=== PATIENT | female | born 1935 | race Caucasian/White ===

== ENCOUNTER 2017-12-13 11:42 | Outpatient (CLI) | payer MEDICARE, BC | END 2017-12-13 11:43 | disposition home or self-care (01) | LOC: BICMAMMO 11:42 | PROVIDERS: ATTEND Family Medicine | DX: Z12.31 Encounter for screening mammogram for malignant neoplasm of breast (principal); Z85.3 Personal history of malignant neoplasm of breast | CPT/HCPCS: 77063; 77067 ==

== ENCOUNTER 2018-12-16 09:53 | Outpatient (CLI) | payer MEDICARE, BC ==
--- NOTE | 2018-12-16 10:41 | MMO ---
Bilateral MAMMO Bilat Screen [facility]. CLINICAL HISTORY: Patient is 83 years old and is seen for screening. The patient has a history of invasive ductal left breast carcinoma in April,. The patient has a history of left Excisional Biopsy in 1994 - benign, left Excisional Biopsy in 12/2004 - cyst and left Lumpectomy in 04/04. VIEWS: The views performed were: bilateral craniocaudal with tomosynthesis and bilateral mediolateral oblique with tomosynthesis. FILMS COMPARED: The present examination has been compared to prior imaging studies performed at [facility] on 10/01/2014, 11/26/2015, 11/30/2016 and 12/13/2017. MAMMOGRAM FINDINGS: There are scattered fibroglandular densities. There are stable benign appearing calcifications seen in both breasts. There are no suspicious masses, suspicious calcifications, or new areas of architectural distortion. IMPRESSION: THERE IS NO MAMMOGRAPHIC EVIDENCE OF MALIGNANCY. A ROUTINE FOLLOW-UP MAMMOGRAM IN 1 YEAR IS RECOMMENDED. THE RESULTS OF THIS EXAM WERE SENT TO THE PATIENT. ACR BI-RADS Category 2 - Benign finding MAMMOGRAPHY NOTE: 1. A negative mammogram report should not delay a biopsy if a dominant of clinically suspicious mass is present. 2. Approximately 10% to 15% of breast cancers are not detected by mammography. 3. Adenosis and dense breasts may obscure an underlying neoplasm.
--- NOTE | 2018-12-16 12:09 | BD ---
DEXA SCAN: DATE: 12/16/2018. PROVIDED CLINICAL HISTORY: Postmenopausal screening. FINDINGS: Lumbar Spine: BMD (g/cm2) L1 0.891 T-Score: -0.9 L2 0.861 T-Score: -1.5 L3 0.924 T-Score: -1.5 L4 0.914 T-Score: -1.3 L1-L4 0.898 T-Score: -1.4 Femoral Neck: 0.643 T-Score: -1.9 Total Femur: 0.818 T-Score: -1 Ten-year fracture risk: Major osteoporotic fracture 14%. Hip fracture 4.3%. Impression: Calculated bone mineral density meets WHO criteria for osteopenia and places the patient at increased risk for fracture. POS: Dimitri
== END 2018-12-16 09:54 | disposition home or self-care (01) ==
LOC: BICMAMMO 09:53
PROVIDERS: ATTEND Family Medicine
DX: Z12.31 Encounter for screening mammogram for malignant neoplasm of breast (principal); M85.89 Other specified disorders of bone density and structure, multiple sites; Z85.3 Personal history of malignant neoplasm of breast; Z91.89 Other specified personal risk factors, not elsewhere classified; Z98.890 Other specified postprocedural states
CPT/HCPCS: 77063; 77067; 77080

== ENCOUNTER 2020-04-26 12:01 | Inpatient (IN) | payer MEDICARE, BC, OTHER ==
[2020-04-26 12:54] LABS: #Eosinphils 0.1 thou/uL (0.0-0.7); #Lymphocytes 1.3 thou/uL (1.20-3.40); #Neutrophils 7.6 thou/uL (1.40-6.50); %Basophils 0.1 % (0.0-1.0); %Eosinophils 0.6 % (0.0-10.0); %Lymphocytes 12.7 % (21.0-51.0); %Monocytes 9.8 % (0.0-10.0); %Neutrophils 76.8 % (42.0-75.0); Hemoglobin 12.3 g/dL (12.0-16.0); Mean Corpuscular HGB CONC 32.7 g/dL (32.0-36.0); Mean Corpuscular Hemoglobin 32.7 pg (27.0-31.0); Mean Corpuscular Volume 99.8 fL (78.0-98.0); Mean Platelet Volume 10.7 fL (7.4-10.4); Platelet Count 196 thou/uL (130-400); RBC Distribution Width 11.8 % (11.5-14.5); Red Blood Cell (RBC) Count 3.78 mill/uL (4.20-5.40); White Blood Cell (WBC) Count 9.9 thou/uL (4.8-10.8)
[2020-04-26] MEDS ORDERED: Lidocaine 1% w/Epinephrine 1:100K 20 ML VIAL ONE (12:55)
[2020-04-26] MEDS ORDERED: Ondansetron PF 4 MG/2 ML Vial ONE ×2 (12:59→14:04)
[2020-04-26] MEDS ORDERED: Morphine 2 MG/ML VIAL ONE (12:59)
[2020-04-26] MEDS ORDERED: Lidocaine 1% (PF) 30 ML VIAL ONE (13:12)
[2020-04-26 13:27] LABS: ALT (SGPT) 44 U/L (8-55); AST (SGOT) 56 U/L (5-34); Alkaline Phosphatase 71 U/L (40-110); Anion Gap 14 mmol/L (10-20); BUN (Urea Nitrogen) 28 mg/dL (9.8-20.1); Bilirubin, Total 0.7 mg/dL (0.2-1.2); Calc. Creatinine Clearance 0 mL/min (70-130); Calcium 9.5 mg/dL (7.8-10.44); Carbon Dioxide 25 mmol/L (23-31); Chloride 101 mmol/L (98-107); Estimated GFR-MDRD 79; Globulin 3.7 g/dL (2.4-3.5); Glucose 118 mg/dL (83-110); Potassium 4.8 mmol/L (3.5-5.1); Protein, Total 7.7 g/dL (6.0-8.3); Sodium 135 mmol/L (136-145)
[2020-04-26] MEDS ORDERED: Ketorolac Tromethamine 30 MG/ML VIAL ONE (13:27)
[2020-04-26 13:30] LABS: INR-International Normal Ratio 1.2; PTT 31.1 sec (22.9-36.1); Prothrombin Time 15.3 sec (12.0-14.7)
[2020-04-26] MEDS ORDERED: Dextrose 5% in Water 1,000 ML IV PRN (13:34)
[2020-04-26] MEDS ORDERED: Ondansetron PF 4 MG/2 ML Vial IVP PRN (13:34)
[2020-04-26] MEDS ORDERED: Dextrose 50% Abboject 50 ML SYRINGE SLOW IVP PRN (13:34)
[2020-04-26] MEDS ORDERED: Cyclobenzaprine 10 MG TAB PO PRN (13:36)
[2020-04-26 13:45] LABS: Phosphorus 3.1 mg/dL (2.3-4.7)
[2020-04-26] MEDS ORDERED: Morphine 4 MG/ML VIAL ONE (14:04)
--- NOTE | 2020-04-26 14:06 | RAD ---
EXAM: 3 views of the left wrist HISTORY: Wrist pain COMPARISON: None FINDINGS: 3 views of the left wrist shows no evidence of acute fracture or dislocation. Moderate dors al soft tissue swelling is seen. No degenerative changes are present. Calcifications are seen along the TFCC which can be seen with CPPD. IMPRESSION: No evidence of acute osseous abnormality.
[2020-04-26] MEDS ORDERED: PHOS-NAK 1 PKT PACK PO SCH (14:45)
[2020-04-26] MEDS ORDERED: Magnesium 2 GM/50 ML 2 GM in Premix Bag 1 BAG IVPB SCH (14:45)
--- NOTE | 2020-04-26 14:53 | CT ---
CT BRAIN WITHOUT CONTRAST: HISTORY: Fall, headache FINDINGS: There are changes of cortical atrophy and chronic small vessel ischemic disease. No evidence of acute infarct, hemorrhage, midline shift or abnormal extra-axial fluid collections is seen. The ventricular size is appropriate and the basilar cisterns are patent. The bony calvarium is intact. Th e visualized paranasal sinuses and mastoid air cells are well aerated. There is soft tissue air in the neck which is better visualized on the CT scan of the cervical spine. IMPRESSION: No CT evidence of acute intracranial process.
--- NOTE | 2020-04-26 15:03 | CT ---
EXAM: CT cervical spine PROVIDED CLINICAL HISTORY: Right-sided pain after a fall. TECHNIQUE: Contiguous axial CT images are obtained through the cervical spine from the skull base to the T2 leve l. Sagittal and coronal reformatted images are provided. COMPARISON: None FINDINGS: No evidence for fracture or traumatic subluxation is seen involving the cervical spine. There is sugg estion of a subtle nondisplaced fracture involving the medial aspect of the posterior right third rib. Multilevel degenerative changes are seen throughout the cervical spine include facet hypertrophic akash nges at multiple levels. There is moderate left-sided neural foraminal narrowing at C2-3 level, severe left-sided neural foraminal narrowing at the C3-4 level, and moderate to severe bilateral neur al foraminal narrowing at the C5-6 level due to posterior osteophyte formation and facet degenerative changes at these levels. No prevertebral soft tissue swelling is apparent. However, there is extensive pneumomediastinal gas w ith gas seen in the region of the prevertebral space and right aspect of the neck. There is suggestion of a tiny right-sided pneumothorax. Chest x-ray obtained on this date at 1115 yuval rs demonstrated a large right-sided pneumothorax with associated hemothorax. IMPRESSION: 1. No evidence for fracture or traumatic subluxation. 2. Tiny right apical pneumothorax with extensive pneumomediastinum and subcutaneous emphysema primari ly on the right with gas seen in the prevertebral space. A large pneumothorax was seen on recent chest x-ray with only tiny right apical pneumothorax visualized on this exam. 3. Question of a subtle nondisplaced right posterior third rib fracture. 4. Degenerative changes in the cervical spine. 5. Above findings discussed with RADAMES Shepherd and the emergency department on 04/26/2020 at 1456 hours
[2020-04-26 18:12] VITALS: BMI 23.6
[2020-04-26] MEDS: traMADol HCl 50 MG TAB PO SCH (18:53)
[2020-04-26] MEDS: Acetaminophen 500 MG TAB PO SCH (18:55)
[2020-04-26] MEDS: Ibuprofen 200 MG TAB PO SCH ×2 (18:57→21:14)
[2020-04-26] MEDS: Gabapentin 100 MG CAP PO SCH ×2 (18:57→20:02)
--- NOTE | 2020-04-26 19:21 | HP ---
TRAUMA SURGEON: Dirk Casarez DO CONSULTING PHYSICIAN: None. HISTORY OF PRESENT ILLNESS: The patient is a 84 year old female who presented to an outside emergency department after mechanical fall 2 days ago. The patient reported chest pain and shortness of breath. Upon chest x-ray evaluation, the patient was found to have a large right-sided hemopneumothorax with tension as well as right-sided rib fractures 5 through 7. She was subsequently transferred to our hospital. The patient is on Eliquis for atrial fibrillation. She reports she does not remember all the events around the accident and does not know she lost consciousness. She does take Eliquis. The patient reports she was at home during the night when she ran into some furniture and fell. She states that she had rearranged referring to previously and had forgotten. Upon my evaluation, the patient had some right-sided anterior chest wall pain. Dr. Casarez placed the right-sided chest tube and 475 old dark blood was evacuated. The patient's O2 saturation upon arrival was 90% on 2 L nasal cannula. Once chest tube was placed, the patient's O2 saturation was 98% on 2 L nasal cannula. REVIEW OF SYSTEMS: All additional 10-point review of systems negative except as indicated above. PAST MEDICAL HISTORY: Atrial fibrillation, CAD status post thyroidectomy, breast cancer, and IBS. PAST SURGICAL HISTORY: SI pinning, bowel resection, tonsillectomy, hysterectomy, and appendectomy. SOCIAL HISTORY: The patient stopped smoking 30 years ago. She drinks about 3 glasses of wine every evening. She denies any drug use. She lives at home with her . MEDICATIONS: The patient cannot remember all medications, but reports she takes; 1. Eliquis and metoprolol p.r.n. for atrial fibrillation. 2. Statin. 3. SSRI. 4. Ambien. 5. Dicyclomine. ALLERGIES: NO KNOWN DRUG ALLERGIES. PHYSICAL EXAMINATION: VITAL SIGNS: Temperature 98.3, pulse 66, respirations 16, oxygen saturation 98% on 2 L nasal cannula, and blood pressure 129/62. PRIMARY SURVEY: Airway intact. Adequate breath sounds bilaterally, this was completed status post chest tube placement. 2+ pulses bilateral radials femorals and DPs. GCS 15. Gross motor and sensation intact. No laceration or external bleeding. The patient has bruising over her right posterior wrist. SECONDARY SURVEY: HEAD: Normocephalic and atraumatic. No gross palpable skull deformities or tenderness. EYES: Pupils 3-2, equal, round, and reactive to light bilaterally. ENT: No signs of facial trauma. C-SPINE: No step-offs or deformities. The patient has bilateral lateral neck tenderness, but no actual cervical spinal tenderness, C-collar not in place. CHEST: Right-sided anterior and lateral wall tenderness. No crepitus. No abrasions or ecchymosis noted. No tenderness on the left chest wall. Equal breath sounds bilaterally. 2+ pulses bilateral radials, femorals, and DPs. PELVIS: Stable to palpation, nontender. No abrasions or ecchymosis noted. RECTAL: Deferred. GENITOURINARY: Deferred. EXTREMITIES: No gross deformity. The patient has some bruising over the posterior aspect of the left wrist. 2+ pulses in bilateral radials, femorals, and DPs. BACK/SPINE: No step-offs or deformities or tenderness to palpation of the thoracic or lumbar spine. No abrasions or ecchymosis noted. 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 Gross normal sensation x4 extremities. LABORATORY FINDINGS: White count 9.9, hemoglobin 12.3, hematocrit 37.7, and platelets 169. INR 1.2, PTT 31.1. Sodium 135, potassium 4.8, chloride 101, bicarb 25, BUN 28, creatinine 0.71, glucose 118, phosphorus 3.1, and magnesium 1.8. Total bilirubin 0.7, AST 56, ALT 44, and alkaline phosphatase 71. DIAGNOSTIC FINDINGS: X-ray of the left wrist demonstrates no evidence of acute osseous abnormalities. CT scan of the brain demonstrates no CT evidence of acute intracranial process. CT scan of the C-spine demonstrates no evidence for fracture or traumatic subluxation. Tiny right apical pneumothorax with extensive pneumomediastinum and subcutaneous emphysema primarily in the right with gas seen in the prevertebral space. A large pneumothorax was seen on recent chest x-ray with only tiny right apical pneumothorax visualized on this exam, question of a subtle nondisplaced right posterior third rib fracture. Degenerative changes to the cervical spine. Chest x-ray completed at the outside facility demonstrates right tension hemopneumothorax, right posterior ribs 5 through 7 fractures. ASSESSMENT: 1. Status post mechanical fall from standing. 2. Right tension hemopneumothorax, status post chest tube. 3. Right-sided ribs 5 through 7 fracture. PLAN: The patient will be admitted to the Trauma Service. She will go to the regular surgical nursing floor. Dr. Casarez has placed a right-sided chest tube with 475 output in canister. The patient with improved oxygenation, rib fracture protocol. Replace electrolytes as needed. Restart home medications as indicated. Start physical and occupational therapy and aggressive pulmonary hygiene with incentive spirometry q.1 hour. Repeat chest x-ray in the morning. This patient was seen and evaluated by Dr. Casarez and myself this afternoon in the emergency department. Job ID: [id number] [facility]
[2020-04-26] MEDS: Famotidine 20 MG TAB PO SCH (20:02)
[2020-04-26] MEDS: Senokot S 8.6-50 MG TAB PO SCH (20:02)
[2020-04-26] MEDS ORDERED: Ondansetron ODT 8 MG TAB PO PRN (20:28)
[2020-04-26] MEDS ORDERED: Sodium Chloride 0.9% 1,000 ML IV SCH (20:30)
[2020-04-26] MEDS: Zolpidem Tartrate 5 MG TAB PO SCH (21:14)
--- NOTE | 2020-04-27 00:19 | OP ---
DATE OF PROCEDURE: 04/26/2020 PREOPERATIVE DIAGNOSES: 1. Status post fall. 2. Large right traumatic hemopneumothorax. POSTOPERATIVE DIAGNOSES: 1. Status post fall. 2. Large right traumatic hemopneumothorax. PROCEDURE PERFORMED: Placement of 28-Mongolian right thoracostomy tube. INDICATIONS FOR PROCEDURE: An 84-year-old woman, who fell down two days ago from a ground-level position. She sustained multiple right rib fractures associated with now large right pneumothorax. Decision was made to place a thoracostomy tube for decompression. DESCRIPTION OF PROCEDURE: Informed consent was obtained from the patient and she was placed in supine position. Right chest wall sterilely prepped and draped in usual fashion. The skin in the 6th intercostal space, right anterior axillary line was anesthetized with 1% lidocaine. 1 cm transverse incision was made here using a 10 scalpel. Right pleural cavity was entered using a hemostat. A 28-Mongolian thoracostomy tube was then introduced into the pleural cavity and advanced superiorly and posteriorly. The tube was connected to a Pleur-evac, which was placed to suction. The tube was then secured to anterior chest wall using 0 silk suture. Sterile dressings were applied. The patient tolerated the operation without any apparent complication and remains hemodynamically stable following completion of procedure. Oxygen saturation, which was previously 90% immediately improved to 98% post procedure. Job ID: [id number]
[2020-04-27] MEDS: traMADol HCl 50 MG TAB PO SCH ×5 (00:27→23:01)
[2020-04-27] MEDS: Acetaminophen 500 MG TAB PO SCH ×5 (00:27→23:01)
--- NOTE | 2020-04-27 01:14 | PRG ---
DATE OF SERVICE: 04/26/2020 SUBJECTIVE: Patient was seen during evening rounds, resting comfortably, in no distress. Patient's nurse reports that she has had very minimal urine output. Patient reports not eating or drinking much in the last couple of days. Patient has a right-sided chest tube to suction. Patient's pain has been controlled. OBJECTIVE: Vital signs stable, afebrile. PLAN: Continue chest tube to suction. Continue supportive care and pain regimen. Continue to increase oral intake. Regular diet as tolerated. We will start normal saline at 100 mL an hour x1 bag as the patient has had minimal output and decreased intake in the last couple of days. Job ID: [id number]
[2020-04-27] MEDS: Ibuprofen 200 MG TAB PO SCH ×3 (05:15→22:59)
[2020-04-27] MEDS: Levothyroxine 175 MCG TAB PO SCH (05:16)
[2020-04-27 05:52] LABS: Anion Gap 17 mmol/L (10-20); BUN (Urea Nitrogen) 29 mg/dL (9.8-20.1); Calc. Creatinine Clearance 66 mL/min (70-130); Calcium 9.1 mg/dL (7.8-10.44); Carbon Dioxide 17 mmol/L (23-31); Chloride 106 mmol/L (98-107); Estimated GFR-MDRD 77; Glucose 100 mg/dL (83-110); Magnesium 1.8 mg/dL (1.6-2.6); Phosphorus 3.6 mg/dL (2.3-4.7); Potassium 4.2 mmol/L (3.5-5.1); Sodium 136 mmol/L (136-145)
[2020-04-27 06:15] LABS: Band 2 % (5-11); Eosinophils 8 % (0-10); Lymphocytes 27 % (21-51); MDiff Complete? YES; Macrocytosis SLIGHT = 6-15 cells (100X) (0-5/hpf); Mean Corpuscular HGB CONC 32.4 g/dL (32.0-36.0); Mean Corpuscular Hemoglobin 32.5 pg (27.0-31.0); Mean Platelet Volume 10.7 fL (7.4-10.4); Monocytes 12 % (0-10); Neutrophil 51 % (42-75); Platelet Count 137 thou/uL (130-400); RBC Distribution Width 11.9 % (11.5-14.5); Red Blood Cell (RBC) Count 3.99 mill/uL (4.20-5.40)
[2020-04-27] MEDS ORDERED: Magnesium 2 GM/50 ML 2 GM in Premix Bag 1 BAG IVPB SCH (07:00)
--- NOTE | 2020-04-27 07:53 | RAD ---
PORTABLE CHEST: Date: 04/27/2020 HISTORY: Right chest tube placement. COMPARISON: Prior day's exam. FINDINGS: The right-sided chest tube has been placed and shows reexpansion of the right lung. No definitive pne umothorax. Some atelectatic changes are seen in the bases. IMPRESSION: Placement of right-sided chest tube. Catheter tip in the right upper lobe. The right lung has reexpan ded. No definitive signs of a pneumothorax. There is a question of a tiny apical pneumothorax. Subcut aneous emphysema is seen. POS: OFF
[2020-04-27] MEDS: Senokot S 8.6-50 MG TAB PO SCH ×2 (08:15→20:28)
[2020-04-27] MEDS: Atorvastatin Calcium 10 MG TAB PO SCH (08:15)
[2020-04-27] MEDS: Famotidine 20 MG TAB PO SCH ×2 (08:15→20:28)
[2020-04-27] MEDS: Polyethylene Glycol 3350 17 GM Packet PO SCH (08:16)
[2020-04-27] MEDS: Gabapentin 100 MG CAP PO SCH ×3 (08:16→20:28)
[2020-04-27] MEDS: Morphine 2 MG/ML VIAL SLOW IVP PRN (08:20)
[2020-04-27] MEDS ORDERED: Magnesium Sulfate 2 GM in Sodium Chloride 0.9% 100 ML IVPB SCH (09:00)
[2020-04-27] MEDS ORDERED: FLU VACC QS2020-21(65YR UP)/PF 240 MCG/0.7 ML SYRINGE IM ONE (09:00)
[2020-04-27 11:08] LABS: SARS-CoV-2 MS2 Positive; SARS-CoV-2 N Gene Negative; SARS-CoV-2 S Gene Negative; SARS-CoV-2 by NAA Not Detected (NotDetected); SARS-CoV-2 orf1ab Negative
--- NOTE | 2020-04-27 14:04 | PRG ---
DATE OF SERVICE: 04/27/2020 The patient was seen on morning rounds. SUBJECTIVE: Ms. Mendez is an 84-year-old female transferred into our facility yesterday. She is hospital day #1, status post fall with delayed presentation. She had a right hemopneumothorax, status post tube thoracostomy with drainage approximately of 450 mL of old blood. Her chest x-ray today demonstrates complete resolution of her pneumothorax. She has no air leak when coughing. Therefore, we placed this to water seal. The patient has no distress, sitting up, tolerating a diet. OBJECTIVE: VITAL SIGNS: Temperature is 97.8, blood pressure 114/66, heart rate is 78, breathing 18 times per minute, oxygen saturation 92% on room air. GENERAL: This is an 84-year-old female, sitting up, in no acute distress. HEENT: Normocephalic and atraumatic. RESPIRATORY: Equal rise and fall. No distress. Right chest tube is in place. No air leak. ABDOMEN: Soft. CARDIOVASCULAR: Regular rate and rhythm. MUSCULOSKELETAL: Moves extremities well. NEUROLOGIC: Alert and oriented. GCS of 15. PSYCHIATRIC: Normal mood and affect. SKIN: Warm and dry. LABORATORY DATA: White blood cell count is 10.0, platelets 137, hemoglobin and hematocrit are 13.0 and 40.0 respectively. Sodium is 136, potassium 4.2, chloride is 106, CO2 is 17, BUN is 29, creatinine is 0.72, glucose is 100, calcium is 9.1, phosphorus is 3.6, and magnesium of 1.8. ASSESSMENT: 1. Fall with right hemopneumothorax. 2. Right rib fractures. 3. Mechanical fall. PLAN: 1. Chest tube was placed to water seal. 2. Repeat chest x-ray in the morning. 3. Continue pain control. 4. Encourage ambulation and IS. 5. Continue all other supportive care. We will continue to monitor. The patient is looking forward to discharge in the ensuing days. Discussed with the patient. Answered all questions. I showed her the x-rays and coordinated with bedside RN. Job ID: [id number]
[2020-04-27] MEDS: Zolpidem Tartrate 5 MG TAB PO SCH (20:28)
[2020-04-28] MEDS: Levothyroxine 175 MCG TAB PO SCH (05:10)
[2020-04-28] MEDS: traMADol HCl 50 MG TAB PO SCH ×4 (05:10→23:00)
[2020-04-28] MEDS: Acetaminophen 500 MG TAB PO SCH ×4 (05:11→22:59)
[2020-04-28] MEDS: Ibuprofen 200 MG TAB PO SCH ×3 (05:12→22:58)
[2020-04-28 05:46] LABS: #Eosinphils 0.4 thou/uL (0.0-0.7); #Lymphocytes 1.4 thou/uL (1.20-3.40); #Monocytes 1.3 thou/uL (0.11-0.59); #Neutrophils 7.4 thou/uL (1.40-6.50); %Basophils 0.2 % (0.0-1.0); %Eosinophils 3.7 % (0.0-10.0); %Lymphocytes 13.4 % (21.0-51.0); %Monocytes 12.3 % (0.0-10.0); %Neutrophils 70.3 % (42.0-75.0); Hemoglobin 11.8 g/dL (12.0-16.0); Mean Corpuscular HGB CONC 33.4 g/dL (32.0-36.0); Mean Corpuscular Hemoglobin 33.2 pg (27.0-31.0); Mean Corpuscular Volume 99.3 fL (78.0-98.0); Mean Platelet Volume 9.7 fL (7.4-10.4); Platelet Count 227 thou/uL (130-400); Red Blood Cell (RBC) Count 3.57 mill/uL (4.20-5.40); White Blood Cell (WBC) Count 10.5 thou/uL (4.8-10.8)
--- NOTE | 2020-04-28 07:59 | RAD ---
EXAM: Single view of the chest HISTORY: Right pneumothorax COMPARISON: 04/27/2020 FINDINGS: Single view of the chest shows a mildly enlarged cardiomediastinal silhouette. Increased i nterstitial markings are present. There is a right-sided chest tube. There may be a tiny right apical pneumothorax. Blunting of the right costophrenic angle may represent a small pleural effusion. Air is seen in the lower right neck. IMPRESSION: Stable exam
[2020-04-28] MEDS: Polyethylene Glycol 3350 17 GM Packet PO SCH (09:07)
[2020-04-28] MEDS: Senokot S 8.6-50 MG TAB PO SCH ×2 (09:08→20:16)
[2020-04-28] MEDS: Famotidine 20 MG TAB PO SCH ×2 (09:08→20:17)
[2020-04-28] MEDS: Gabapentin 100 MG CAP PO SCH ×3 (09:09→20:16)
[2020-04-28] MEDS: Atorvastatin Calcium 10 MG TAB PO SCH (09:09)
[2020-04-28] MEDS: Morphine 2 MG/ML VIAL SLOW IVP PRN (09:29)
--- NOTE | 2020-04-28 12:37 | PRG ---
DATE OF SERVICE: 04/28/2020 SUBJECTIVE: The patient was seen on morning rounds. The patient is an 84-year-old female transferred to our facility hospital day 2, status post fall with delayed presentation, had a right hemopneumothorax, status post tube thoracostomy. Chest x-ray today and yesterday demonstrate complete resolution of pneumothorax. The patient had water-seal placed yesterday. Today, the patient has no distress, sitting up, tolerating diet. The chest tube was removed at bedside. OBJECTIVE: VITAL SIGNS: Temperature 98.2 Fahrenheit, pulse 63, respiratory rate 16, O2 saturation 96% on room air, blood pressure 133/75. GENERAL: An 84-year-old female sitting up, in no acute distress. HEENT: Normocephalic, atraumatic. RESPIRATORY: Equal rise and fall. No distress. ABDOMEN: Soft. CARDIOVASCULAR: Regular rate and rhythm. MUSCULOSKELETAL: Moves extremities well. NEUROLOGIC: Alert and oriented. GCS 15. PSYCHIATRIC: Normal mood and affect. SKIN: Warm and dry. LABORATORY FINDINGS: Hemoglobin 11.8, hematocrit 35.4. Chest x-ray this morning is stable exam. Noted there may be a tiny right apical pneumothorax. ASSESSMENT: 1. Fall with right hemopneumothorax. 2. Right rib fractures. 3. Mechanical fall. PLAN: 1. Chest tube was removed at bedside. We will get repeat chest x-ray in the morning. 2. Continue pain control. 3. Encourage ambulation and incentive spirometry. 4. Continue all other supportive care. We will continue to monitor. This patient was seen at the bedside with Dr. Casarez on morning rounds. The patient and family are in agreement with the plan. Job ID: [id number] [facility]
--- NOTE | 2020-04-28 15:16 | RAD ---
Chest one view HISTORY: Pneumothorax. Chest tube removal. COMPARISON: 04/28/2020. FINDINGS: Cardiac silhouette is magnified by projection. Pulmonary vasculature upper limits of normal . Mediastinum is midline with aortic calcification. Lungs are well-inflated allowing for mild atelectas is at the right base. Right thoracostomy tube no longer visualized. Right upper chest wall gas similar in appearance to the prior study. Right posterior rib fractures partially visualized. IMPRESSION : Interval removal right thoracostomy tube. No recurrent pneumothorax.
[2020-04-28] MEDS ORDERED: Rivaroxaban 10 MG TAB PO SCH (18:00)
[2020-04-28] MEDS: Zolpidem Tartrate 5 MG TAB PO SCH (20:17)
--- NOTE | 2020-04-29 01:12 | PRG ---
DATE OF SERVICE: 04/28/2020 SUBJECTIVE: This is an 84-year-old female, status post fall resulting in right hemopneumothorax and multiple right rib fractures. The patient's chest tube was removed earlier today. Upon my evaluation this evening, nursing at bedside vocalized no concerns. The patient reports pain is tolerable and well managed. OBJECTIVE: VITAL SIGNS: Reviewed and as documented in the electronic medical record. GENERAL: The patient is resting in bed, in no acute distress. PULMONARY: Normal work of breathing. Symmetric rise. IMAGING STUDIES: Chest x-ray on 04/28 at 1513 demonstrated removal of the chest tube with no recurrent pneumothorax. ASSESSMENT AND PLAN: As documented in the electronic medical record, progress note dated 04/28/2020. I have reviewed today's earlier chest x-ray after the patient reportedly vocalized concerns regarding her breathing. No evidence of recurrent pneumothorax was noted at that time. The patient was encouraged to continue incentive spirometry. Other supportive care as ordered. Job ID: [id number]
[2020-04-29] MEDS: Ibuprofen 200 MG TAB PO SCH (05:11)
[2020-04-29] MEDS: Levothyroxine 175 MCG TAB PO SCH (05:12)
[2020-04-29] MEDS: traMADol HCl 50 MG TAB PO SCH ×2 (05:12→13:01)
[2020-04-29] MEDS: Acetaminophen 500 MG TAB PO SCH ×2 (05:12→13:01)
--- NOTE | 2020-04-29 08:07 | RAD ---
Exam: Chest one view HISTORY:Status post chest tube removal. Pneumothorax. Comparison: 04/28/2020, 04/27/2020 FINDINGS: Cardiac silhouette: Normal Aorta: Unremarkable Pulmonary vessels: Normal Costophrenic angles: There do appear to be bilateral pleural effusions, right greater than left. LUNGS: There is a hazy opacity in the right hemithorax which is developed since the previous exam. Pneumothorax: No pneumothorax. Decreasing subcutaneous emphysema in the right neck. Osseous abnormalities: None IMPRESSION: 1. No pneumothorax 2. Decreasing subcutaneous emphysema in the right neck. 3. Worsening opacification the right lung. Correlate for pneumonia.
[2020-04-29] MEDS ORDERED: Bisacodyl 10 MG SUPP PR SCH (09:00)
[2020-04-29] MEDS: Famotidine 20 MG TAB PO SCH (09:47)
[2020-04-29] MEDS: Atorvastatin Calcium 10 MG TAB PO SCH (09:48)
[2020-04-29] MEDS: Gabapentin 100 MG CAP PO SCH (09:48)
[2020-04-29] MEDS: Senokot S 8.6-50 MG TAB PO SCH (09:48)
[2020-04-29] MEDS: Polyethylene Glycol 3350 17 GM Packet PO SCH (09:49)
[2020-04-29 11:36] VITALS: BP 122/73; TEMP 97.6
[2020-04-29] MEDS ORDERED: Azithromycin 250 MG TAB PO SCH (13:00)
== END 2020-04-29 15:00 | disposition home or self-care (01) | DRG 200 ==
LOC: ERS 12:01 → SJJU 13:34
PROVIDERS: ADMIT Surgery; ATTEND Surgery
PROC: 0W9930Z Drainage of Right Pleural Cavity with Drainage Device, Percutaneous Approach (ICD-10-PCS; principal; 2020-04-26)
PROC: 3E02340 Introduction of Influenza Vaccine into Muscle, Percutaneous Approach (ICD-10-PCS; 2020-04-26)
DX: S27.2XXA Traumatic hemopneumothorax, initial encounter (principal); S22.41XA Multiple fractures of ribs, right side, initial encounter for closed fracture; Z20.828 Contact with and (suspected) exposure to other viral communicable diseases; W19.XXXA Unspecified fall, initial encounter; I25.10 Atherosclerotic heart disease of native coronary artery without angina pectoris; Z23 Encounter for immunization; Z90.710 Acquired absence of both cervix and uterus; Z85.3 Personal history of malignant neoplasm of breast; Z79.890 Hormone replacement therapy; Z79.899 Other long term (current) drug therapy; Z90.49 Acquired absence of other specified parts of digestive tract; Z87.891 Personal history of nicotine dependence
CPT/HCPCS: 32551; 36415; 70450; 71045; 72125; 80048; 80053; 83735; 84100; 85025; 85610; 85730; 87635; 90471; 90662; 93005; 94640; 96374; 96375; 96376; G0008; J1885; J2001; J2270; J2405; J3475; J7620; U0003

== ENCOUNTER 2020-05-10 10:08 | Outpatient (CLI) | payer MEDICARE, BC ==
--- NOTE | 2020-05-10 11:24 | RAD ---
CHEST 2 VIEWS: Date: 05/10/2020 HISTORY: Rib fractures, hemothorax. Prior chest tube. COMPARISON: 04/29/2020. FINDINGS: There is some persistent right pleural effusion, slightly more prominent on prior study. There is marimar e fluid in the fissures, including the minor fissure on the right side. There is a small air fluid le heather seen on the PA chest and the right lower chest, probably a small, loculated hydropneumothorax. He art size is within normal limits. The left lung is clear. IMPRESSION: 1. Persistent probably minimally increasing right pleural effusion, including some fluid in the cost ophrenic angle region, as well as some fluid in the fissures, with some opacity overlying the right m id chest. 2. Small air fluid level in the right lower chest region, probably a small focus of pleural fluid an d air. 3. Stable appearing left chest. Continue short-term follow-up for continued clearing. POS: RRE
== END 2020-05-10 10:09 | disposition home or self-care (01) ==
LOC: BICRAD 10:08
PROVIDERS: ATTEND Surgery
DX: J94.2 Hemothorax (principal); S22.39XA Fracture of one rib, unspecified side, initial encounter for closed fracture; J94.8 Other specified pleural conditions
CPT/HCPCS: 71046

== ENCOUNTER 2020-08-09 10:09 | Outpatient (CLI) | payer MEDICARE, BC ==
--- NOTE | 2020-08-09 11:06 | RAD ---
XR Chest Pa Lat STANDARD History: Atypical chest pain Comparison: Radiograph May 2020 Findings: Mild background lung hyperinflation. Chronic pleural thickening right hemithorax. Calcified granuloma right lung. No pneumothorax. Mild biapical pleural thickening. Pleural thickening is also present along the right minor fissure. Old right rib fractures. Heart size is enlarged. Impression: Chronic findings. No acute intrathoracic abnormality.
== END 2020-08-09 10:10 | disposition home or self-care (01) ==
LOC: SCSRAD 10:09
PROVIDERS: ATTEND Family Medicine
DX: R07.89 Other chest pain (principal)
CPT/HCPCS: 71046

== ENCOUNTER 2021-12-30 09:00 | Outpatient (CLI) | payer MEDICARE, BC ==
[2021-12-30 10:26] LABS: Hemoglobin 13.9 g/dL (12.0-15.5); Mean Corpuscular HGB CONC 33.7 g/dL (32.0-36.0); Mean Corpuscular Hemoglobin 31.9 pg (27.0-33.0); Mean Corpuscular Volume 94.5 fl (81.6-98.3); Platelet Count 267 10x3/uL (150-450); RBC Distribution Width 16.2 % (11.5-14.5); Red Blood Cell (RBC) Count 4.36 10x6/uL (3.90-5.03); White Blood Cell (WBC) Count 7.5 10x3/uL (3.5-10.5)
[2021-12-30 10:42] LABS: Prothrombin Time 10.9 sec (9.5-12.1)
[2021-12-30 10:47] LABS: Anion Gap 15 mmol/L (10-20); BUN (Urea Nitrogen) 22 mg/dL (9.8-20.1); Calc. Creatinine Clearance 0 mL/min (70-130); Calcium 9.9 mg/dL (7.8-10.44); Carbon Dioxide 26 mmol/L (23-31); Chloride 104 mmol/L (98-107); Estimated GFR 76; Glucose 97 mg/dL (83-110); Potassium 4.8 mmol/L (3.5-5.1); Sodium 140 mmol/L (136-145)
== END 2021-12-30 09:01 | disposition home or self-care (01) ==
LOC: LABBT 09:00
PROVIDERS: ATTEND Internal Medicine Cardiovascular Disease
DX: Z01.812 Encounter for preprocedural laboratory examination (principal); I48.0 Paroxysmal atrial fibrillation; I48.3 Typical atrial flutter; Z20.822 Contact with and (suspected) exposure to COVID-19
CPT/HCPCS: 80048; 85027; 85610; 87811

== ENCOUNTER 2022-01-03 06:03 | Day surgery (SDC) | payer MEDICARE, BC ==
[2021-12-29 14:53] VITALS: BMI 23.7
[2022-01-03] MEDS ORDERED: Heparin 10,000 UNITS/ 10 ML VIAL ONE (06:28)
[2022-01-03] MEDS ORDERED: Protamine Sulfate 50 MG/5 ML VIAL ONE (06:28)
[2022-01-03] MEDS ORDERED: Lidocaine 1% (PF) 30 ML VIAL ONE (06:40)
[2022-01-03] MEDS ORDERED: Esmolol 100 MG/10 ML VIAL ONE (07:45)
[2022-01-03] MEDS ORDERED: PROPOFOL 200 MG/20 ML VIAL ONE (07:45)
[2022-01-03] MEDS ORDERED: Lidocaine 1% PF 5 ML VIAL ONE (07:45)
[2022-01-03] MEDS ORDERED: Rocuronium Bromide 10 MG/ML (10ML VIAL) ONE (07:45)
[2022-01-03] MEDS ORDERED: Dexamethasone 20 MG/5 ML VIAL ONE (07:45)
[2022-01-03] MEDS ORDERED: Ondansetron PF 4 MG/2 ML Vial ONE (07:45)
[2022-01-03] MEDS ORDERED: SUGAMMADEX SODIUM 200 MG/2 ML VIAL ONE (09:35)
== END 2022-01-03 12:50 | disposition home or self-care (01) ==
LOC: SDC 06:03
PROVIDERS: ATTEND Internal Medicine Cardiovascular Disease
PROC: B246ZZ4 Ultrasonography of Right and Left Heart, Transesophageal (ICD-10-PCS; principal; 2022-01-03)
PROC: B244ZZ3 Ultrasonography of Right Heart, Intravascular (ICD-10-PCS; 2022-01-03)
PROC: 02583ZZ Destruction of Conduction Mechanism, Percutaneous Approach (ICD-10-PCS; 2022-01-03)
PROC: 02K83ZZ Map Conduction Mechanism, Percutaneous Approach (ICD-10-PCS; 2022-01-03)
DX: I48.3 Typical atrial flutter (principal); I48.0 Paroxysmal atrial fibrillation; I34.0 Nonrheumatic mitral (valve) insufficiency; I44.7 Left bundle-branch block, unspecified; E03.9 Hypothyroidism, unspecified; I25.10 Atherosclerotic heart disease of native coronary artery without angina pectoris; E78.00 Pure hypercholesterolemia, unspecified; Z85.3 Personal history of malignant neoplasm of breast; Z87.891 Personal history of nicotine dependence; Z79.01 Long term (current) use of anticoagulants; Z79.890 Hormone replacement therapy; Z79.899 Other long term (current) drug therapy; Z90.49 Acquired absence of other specified parts of digestive tract
CPT/HCPCS: 93005; 93312; 93613; 93621; 93653; 93662; C1731; C1759; C1894; C2630; J1100; J1644; J2001; J2405; J2704; J2720

== ENCOUNTER 2023-03-01 21:48 | Inpatient (IN) | payer MEDICARE, BC ==
[2023-03-01 22:40] LABS: #Basophils 0.1 thou/uL (0.0-0.2); #Eosinphils 0.2 thou/uL (0.0-0.7); #Monocytes 0.8 thou/uL (0.11-0.59); #Neutrophils 6.5 thou/uL (1.40-6.50); %Basophils 0.7 % (0.0-1.0); %Eosinophils 2.5 % (0.0-10.0); %Lymphocytes 11.6 % (21.0-51.0); %Monocytes 9.5 % (0.0-10.0); %Neutrophils 75.2 % (42.0-75.0); Hematocrit 46.5 % (36.0-47.0); Mean Corpuscular HGB CONC 34.4 g/dL (32.0-36.0); Mean Corpuscular Hemoglobin 32.7 pg (27.0-31.0); Mean Corpuscular Volume 95.1 fl (78.0-98.0); Mean Platelet Volume 9.8 fL (7.4-10.4); Platelet Count 390 10x3/uL (130-400); RBC Distribution Width 15.4 % (11.5-14.5); Red Blood Cell (RBC) Count 4.89 mill/uL (4.20-5.40); White Blood Cell (WBC) Count 8.7 10x3/uL (4.8-10.8)
[2023-03-01 23:01] LABS: SARS-CoV-2 NAA Rapid Test Not Detected (NotDetected)
[2023-03-01 23:16] LABS: ALT (SGPT) 22 U/L (8-55); AST (SGOT) 28 U/L (5-34); Albumin 3.9 g/dL (3.4-4.8); Alkaline Phosphatase 75 U/L (40-110); Anion Gap 18 mmol/L (10-20); BUN (Urea Nitrogen) 18 mg/dL (9.8-20.1); Bilirubin, Total 0.4 mg/dL (0.2-1.2); CK (CPK) 109 U/L (29-168); Calc. Creatinine Clearance 0 mL/min (70-130); Calcium 9.9 mg/dL (7.8-10.44); Carbon Dioxide 20 mmol/L (23-31); Chloride 100 mmol/L (98-107); Estimated GFR 61; Globulin 4.1 g/dL (2.4-3.5); Glucose 107 mg/dL (83-110); Magnesium 2.1 mg/dL (1.6-2.6); Sodium 134 mmol/L (136-145)
[2023-03-01 23:19] LABS: Troponin I Less than 0.010 ng/mL (< 0.028)
[2023-03-02] MEDS ORDERED: Ondansetron PF 4 MG/2 ML Vial IVP PRN ×2 (01:02→09:03)
[2023-03-02] MEDS ORDERED: Communication Order-Pharmacy FS ONE (01:22)
[2023-03-02 02:00] LABS: Troponin I 0.012 ng/mL (< 0.028)
[2023-03-02 03:03] VITALS: BMI 26.2
[2023-03-02 03:44] LABS: Digoxin 1.47 ng/mL (0.8-2.0)
[2023-03-02 05:43] LABS: #Basophils 0.1 thou/uL (0.0-0.2); #Eosinphils 0.3 thou/uL (0.0-0.7); #Monocytes 1.1 thou/uL (0.11-0.59); #Neutrophils 6.2 thou/uL (1.40-6.50); %Basophils 0.7 % (0.0-1.0); %Eosinophils 3.4 % (0.0-10.0); %Lymphocytes 12.8 % (21.0-51.0); %Monocytes 12.1 % (0.0-10.0); %Neutrophils 70.5 % (42.0-75.0); Hematocrit 45.3 % (36.0-47.0); Hemoglobin 15.6 g/dL (12.0-16.0); Mean Corpuscular HGB CONC 34.4 g/dL (32.0-36.0); Mean Corpuscular Hemoglobin 32.6 pg (27.0-31.0); Mean Corpuscular Volume 94.6 fl (78.0-98.0); Mean Platelet Volume 10.8 fL (7.4-10.4); RBC Distribution Width 15.4 % (11.5-14.5); Red Blood Cell (RBC) Count 4.79 mill/uL (4.20-5.40); White Blood Cell (WBC) Count 8.7 10x3/uL (4.8-10.8)
[2023-03-02 05:57] LABS: Platelet Count 414 10x3/uL (130-400)
[2023-03-02] MEDS: Levothyroxine Sodium 100 MCG TAB PO SCH (06:17)
[2023-03-02] MEDS: Furosemide 20 MG/2 ML VIAL SLOW IVP SCH ×2 (06:17→13:45)
[2023-03-02 06:21] LABS: ALT (SGPT) 21 U/L (8-55); AST (SGOT) 27 U/L (5-34); Albumin 3.6 g/dL (3.4-4.8); Alkaline Phosphatase 73 U/L (40-110); Anion Gap 17 mmol/L (10-20); BUN (Urea Nitrogen) 15 mg/dL (9.8-20.1); Bilirubin, Total 0.5 mg/dL (0.2-1.2); Calc. Creatinine Clearance 63 mL/min (70-130); Calcium 9.5 mg/dL (7.8-10.44); Carbon Dioxide 23 mmol/L (23-31); Chloride 98 mmol/L (98-107); Estimated GFR 66; Globulin 3.8 g/dL (2.4-3.5); Glucose 97 mg/dL (83-110); Potassium 3.9 mmol/L (3.5-5.1); Protein, Total 7.4 g/dL (5.8-8.1); Sodium 134 mmol/L (136-145)
[2023-03-02] MEDS: Famotidine/PF 20 mg/2ml Vial SLOW IVP SCH ×2 (08:56→20:29)
[2023-03-02] MEDS ORDERED: Ipratropium/Albuterol 3 ML NEB NEB PRN (09:04)
[2023-03-02] MEDS ORDERED: Iopamidol-370 76% 500 ML MDV (1 ML CHARGE) ONE (10:57)
[2023-03-02 11:20] LABS: INR-International Normal Ratio 1.5; Prothrombin Time 19.2 sec (12.0-14.7)
[2023-03-02] MEDS: HYDROcodone/Acetaminophen 5/325 mg Tablet PO PRN ×3 (13:45→23:52)
[2023-03-02] MEDS: Cefepime 1 GM in Sodium Chloride 0.9% 100 ML IVPB SCH (20:29)
[2023-03-03 05:09] LABS: #Basophils 0.1 thou/uL (0.0-0.2); #Eosinphils 0.3 thou/uL (0.0-0.7); #Monocytes 0.9 thou/uL (0.11-0.59); #Neutrophils 5.5 thou/uL (1.40-6.50); %Basophils 0.8 % (0.0-1.0); %Eosinophils 3.5 % (0.0-10.0); %Lymphocytes 12.6 % (21.0-51.0); %Monocytes 11.7 % (0.0-10.0); Hematocrit 46.1 % (36.0-47.0); Hemoglobin 15.5 g/dL (12.0-16.0); Mean Corpuscular HGB CONC 33.6 g/dL (32.0-36.0); Mean Corpuscular Hemoglobin 32.3 pg (27.0-31.0); Mean Platelet Volume 11.4 fL (7.4-10.4); Platelet Count 350 10x3/uL (130-400); RBC Distribution Width 15.6 % (11.5-14.5); White Blood Cell (WBC) Count 7.8 10x3/uL (4.8-10.8)
[2023-03-03 05:21] LABS: INR-International Normal Ratio 1.3; Prothrombin Time 16.2 sec (12.0-14.7)
[2023-03-03 05:33] LABS: Anion Gap 13 mmol/L (10-20); BUN (Urea Nitrogen) 16 mg/dL (9.8-20.1); CRP (Inflammatory) 4.42 mg/dL (= or < 0.5); Calc. Creatinine Clearance 66 mL/min (70-130); Calcium 9.4 mg/dL (7.8-10.44); Carbon Dioxide 23 mmol/L (23-31); Chloride 98 mmol/L (98-107); Estimated GFR 70; Glucose 88 mg/dL (83-110); Potassium 3.7 mmol/L (3.5-5.1); Sodium 130 mmol/L (136-145)
[2023-03-03 05:51] LABS: Free T4 (Free Thyroxine) 0.83 ng/dL (0.70-1.48)
[2023-03-03] MEDS ORDERED: Lidocaine 1% w/Epinephrine 1:100K 20 ML VIAL IJ SCH (06:00)
[2023-03-03] MEDS: Levothyroxine Sodium 100 MCG TAB PO SCH (06:20)
[2023-03-03] MEDS: Furosemide 20 MG/2 ML VIAL SLOW IVP SCH ×2 (06:20→17:02)
[2023-03-03] MEDS ORDERED: Senokot S 8.6-50 MG TAB PO PRN (08:29)
[2023-03-03] MEDS ORDERED: Calcium Carbonate 500 MG ChewTAB PO PRN (08:29)
[2023-03-03] MEDS ORDERED: Potassium Chloride 10 MEQ TAB PO SCH (09:00)
[2023-03-03] MEDS: Sertraline 100 MG TAB PO SCH (09:13)
[2023-03-03] MEDS: Spironolactone 25 MG TAB PO SCH (09:13)
[2023-03-03] MEDS: Amiodarone 200 MG TAB PO SCH (09:13)
[2023-03-03] MEDS: Folic Acid 1 MG TAB PO SCH (09:13)
[2023-03-03] MEDS: dilTIAZem CD 120 MG CAP PO SCH (09:13)
[2023-03-03] MEDS: Famotidine/PF 20 mg/2ml Vial SLOW IVP SCH ×2 (09:14→19:51)
[2023-03-03] MEDS: Cefepime 1 GM in Sodium Chloride 0.9% 100 ML IVPB SCH ×2 (09:14→19:50)
[2023-03-03] MEDS: Digoxin 0.125 MG TAB PO SCH (09:31)
[2023-03-03] MEDS ORDERED: Lidocaine 1% w/Epinephrine 1:100K 20 ML VIAL ONE (11:39)
[2023-03-03] MEDS ORDERED: Lidocaine 1% (PF) 30 ML VIAL ONE (11:39)
[2023-03-03 13:05] LABS: Fluid, pH - Pleural Fld Greater than 7.500 (7.60 - 7.66)
[2023-03-03 13:09] LABS: RBC Count-Automated (BF) 49621 /cu.mm; WBC/Nucleated-Auto (BF) 1472 /cu.mm
[2023-03-03 13:17] LABS: BF Color Red; Body Fluid Source Pleural Fluid; Clarity Cloudy/Turbid (Clear); Tube # EDTA
[2023-03-03 13:49] LABS: BF Segmented Neutrophils 7 %; Cell Count Non Hematic 23 %; Eosinophils 2 %; Lymphocytes 68 %; Pleural Fluid, Protein 5.5 g/dL
[2023-03-03] MEDS: HYDROcodone/Acetaminophen 5/325 mg Tablet PO PRN ×2 (19:51→23:47)
[2023-03-04] MEDS: HYDROcodone/Acetaminophen 5/325 mg Tablet PO PRN ×2 (04:11→19:34)
[2023-03-04 04:58] LABS: #Eosinphils 0.2 thou/uL (0.0-0.7); %Basophils 0.3 % (0.0-1.0); %Eosinophils 1.8 % (0.0-10.0); %Lymphocytes 10.7 % (21.0-51.0); %Neutrophils 75.8 % (42.0-75.0); Hematocrit 49.4 % (36.0-47.0); Hemoglobin 16.9 g/dL (12.0-16.0); Mean Corpuscular HGB CONC 34.2 g/dL (32.0-36.0); Mean Corpuscular Hemoglobin 32.1 pg (27.0-31.0); Mean Corpuscular Volume 93.7 fl (78.0-98.0); Mean Platelet Volume 10.7 fL (7.4-10.4); Platelet Count 430 10x3/uL (130-400); RBC Distribution Width 15.3 % (11.5-14.5); Red Blood Cell (RBC) Count 5.27 mill/uL (4.20-5.40); White Blood Cell (WBC) Count 9.3 10x3/uL (4.8-10.8)
[2023-03-04 05:19] LABS: Anion Gap 16 mmol/L (10-20); BUN (Urea Nitrogen) 19 mg/dL (9.8-20.1); Calc. Creatinine Clearance 66 mL/min (70-130); Calcium 9.4 mg/dL (7.8-10.44); Carbon Dioxide 24 mmol/L (23-31); Chloride 96 mmol/L (98-107); Estimated GFR 70; Glucose 112 mg/dL (83-110); Potassium 3.9 mmol/L (3.5-5.1); Sodium 132 mmol/L (136-145)
[2023-03-04] MEDS: Levothyroxine Sodium 125 MCG TAB PO SCH (05:40)
[2023-03-04] MEDS: Furosemide 20 MG/2 ML VIAL SLOW IVP SCH ×2 (05:40→14:34)
[2023-03-04] MEDS: Potassium Chloride 10 MEQ TAB PO SCH (10:22)
[2023-03-04] MEDS: Digoxin 0.125 MG TAB PO SCH (10:23)
[2023-03-04] MEDS: Spironolactone 25 MG TAB PO SCH (10:23)
[2023-03-04] MEDS: Amiodarone 200 MG TAB PO SCH (10:23)
[2023-03-04] MEDS: Sertraline 100 MG TAB PO SCH (10:25)
[2023-03-04] MEDS: Folic Acid 1 MG TAB PO SCH (10:25)
[2023-03-04] MEDS: dilTIAZem CD 120 MG CAP PO SCH (10:25)
[2023-03-04] MEDS: Cefepime 1 GM in Sodium Chloride 0.9% 100 ML IVPB SCH ×2 (10:27→20:24)
[2023-03-04] MEDS: Famotidine/PF 20 mg/2ml Vial SLOW IVP SCH ×2 (10:28→20:24)
[2023-03-05] MEDS: HYDROcodone/Acetaminophen 5/325 mg Tablet PO PRN ×2 (00:24→05:27)
[2023-03-05 05:26] LABS: #Basophils 0.1 thou/uL (0.0-0.2); #Eosinphils 0.2 thou/uL (0.0-0.7); #Monocytes 1.2 thou/uL (0.11-0.59); #Neutrophils 8.2 thou/uL (1.40-6.50); %Basophils 0.5 % (0.0-1.0); %Eosinophils 1.4 % (0.0-10.0); %Lymphocytes 8.9 % (21.0-51.0); %Neutrophils 77.7 % (42.0-75.0); Hematocrit 50.8 % (36.0-47.0); Hemoglobin 17.4 g/dL (12.0-16.0); Mean Corpuscular HGB CONC 34.3 g/dL (32.0-36.0); Mean Corpuscular Hemoglobin 31.8 pg (27.0-31.0); Mean Corpuscular Volume 92.7 fl (78.0-98.0); Mean Platelet Volume 11.5 fL (7.4-10.4); Platelet Count 356 10x3/uL (130-400); RBC Distribution Width 15.4 % (11.5-14.5); Red Blood Cell (RBC) Count 5.48 mill/uL (4.20-5.40); White Blood Cell (WBC) Count 10.5 10x3/uL (4.8-10.8)
[2023-03-05] MEDS: Furosemide 20 MG/2 ML VIAL SLOW IVP SCH (05:27)
[2023-03-05] MEDS: Levothyroxine Sodium 125 MCG TAB PO SCH (05:27)
[2023-03-05 08:04] LABS: Calcium 9.6 mg/dL (7.8-10.44); Chloride 95 mmol/L (98-107); Potassium 3.8 mmol/L (3.5-5.1); Sodium 130 mmol/L (136-145)
[2023-03-05 08:05] LABS: Glucose 124 mg/dL (83-110)
[2023-03-05 08:06] LABS: Anion Gap 16 mmol/L (10-20); Carbon Dioxide 23 mmol/L (23-31)
[2023-03-05 08:08] LABS: Calc. Creatinine Clearance 65 mL/min (70-130); Estimated GFR 68
[2023-03-05 08:09] LABS: BUN (Urea Nitrogen) 20 mg/dL (9.8-20.1)
[2023-03-05] MEDS: dilTIAZem CD 120 MG CAP PO SCH (11:03)
[2023-03-05] MEDS: Cefepime 1 GM in Sodium Chloride 0.9% 100 ML IVPB SCH ×2 (11:03→21:05)
[2023-03-05] MEDS: Spironolactone 25 MG TAB PO SCH (11:04)
[2023-03-05] MEDS: Digoxin 0.125 MG TAB PO SCH (11:04)
[2023-03-05] MEDS: Potassium Chloride 10 MEQ TAB PO SCH (11:04)
[2023-03-05] MEDS: Amiodarone 200 MG TAB PO SCH (11:04)
[2023-03-05] MEDS: Sertraline 100 MG TAB PO SCH (11:04)
[2023-03-05] MEDS: Folic Acid 1 MG TAB PO SCH (11:04)
[2023-03-05] MEDS: Famotidine/PF 20 mg/2ml Vial SLOW IVP SCH ×2 (11:06→21:05)
[2023-03-05] MEDS: Heparin 5,000 UNITS/ML VIAL SC SCH (21:05)
[2023-03-06 05:54] LABS: #Eosinphils 0.2 thou/uL (0.0-0.7); #Monocytes 0.9 thou/uL (0.11-0.59); #Neutrophils 6.3 thou/uL (1.40-6.50); %Basophils 0.5 % (0.0-1.0); %Eosinophils 2.2 % (0.0-10.0); %Lymphocytes 13.6 % (21.0-51.0); %Monocytes 10.9 % (0.0-10.0); %Neutrophils 72.1 % (42.0-75.0); Hematocrit 47.5 % (36.0-47.0); Hemoglobin 16.5 g/dL (12.0-16.0); Mean Corpuscular HGB CONC 34.7 g/dL (32.0-36.0); Mean Corpuscular Hemoglobin 32.4 pg (27.0-31.0); Mean Corpuscular Volume 93.1 fl (78.0-98.0); Mean Platelet Volume 11.5 fL (7.4-10.4); Platelet Count 370 10x3/uL (130-400); RBC Distribution Width 15.1 % (11.5-14.5); White Blood Cell (WBC) Count 8.7 10x3/uL (4.8-10.8)
[2023-03-06] MEDS ORDERED: Furosemide 20 MG/2 ML VIAL SLOW IVP SCH (06:00)
[2023-03-06] MEDS: Levothyroxine Sodium 125 MCG TAB PO SCH (06:14)
[2023-03-06 06:21] LABS: Anion Gap 12 mmol/L (10-20); BUN (Urea Nitrogen) 21 mg/dL (9.8-20.1); Calc. Creatinine Clearance 69 mL/min (70-130); Calcium 9.4 mg/dL (7.8-10.44); Carbon Dioxide 26 mmol/L (23-31); Chloride 94 mmol/L (98-107); Estimated GFR 73; Glucose 94 mg/dL (83-110); Potassium 3.9 mmol/L (3.5-5.1); Sodium 128 mmol/L (136-145)
[2023-03-06] MEDS: Heparin 5,000 UNITS/ML VIAL SC SCH ×2 (09:35→22:37)
[2023-03-06] MEDS: dilTIAZem CD 120 MG CAP PO SCH (09:35)
[2023-03-06] MEDS: Famotidine/PF 20 mg/2ml Vial SLOW IVP SCH (09:35)
[2023-03-06] MEDS: Digoxin 0.125 MG TAB PO SCH (09:37)
[2023-03-06] MEDS: Amiodarone 200 MG TAB PO SCH (09:37)
[2023-03-06] MEDS: Sertraline 100 MG TAB PO SCH (09:38)
[2023-03-06] MEDS: Folic Acid 1 MG TAB PO SCH (09:39)
[2023-03-06] MEDS: Spironolactone 25 MG TAB PO SCH (09:39)
[2023-03-06] MEDS: Potassium Chloride 10 MEQ TAB PO SCH (09:39)
[2023-03-06] MEDS ORDERED: Iopamidol 370 76% 100 ML VIAL ONE (11:06)
[2023-03-06] MEDS: Cefepime 1 GM in Sodium Chloride 0.9% 100 ML IVPB SCH ×2 (11:37→22:37)
[2023-03-06] MEDS: Famotidine 20 MG TAB PO SCH (22:37)
[2023-03-07 04:12] LABS: #Basophils 0.1 thou/uL (0.0-0.2); #Eosinphils 0.2 thou/uL (0.0-0.7); #Neutrophils 6.2 thou/uL (1.40-6.50); %Basophils 0.6 % (0.0-1.0); %Eosinophils 2.3 % (0.0-10.0); %Lymphocytes 10.1 % (21.0-51.0); %Monocytes 12.4 % (0.0-10.0); Hemoglobin 16.1 g/dL (12.0-16.0); Mean Corpuscular HGB CONC 34.3 g/dL (32.0-36.0); Mean Corpuscular Hemoglobin 32.1 pg (27.0-31.0); Mean Corpuscular Volume 93.8 fl (78.0-98.0); Mean Platelet Volume 10.5 fL (7.4-10.4); Platelet Count 351 10x3/uL (130-400); RBC Distribution Width 15.2 % (11.5-14.5); Red Blood Cell (RBC) Count 5.01 mill/uL (4.20-5.40); White Blood Cell (WBC) Count 8.4 10x3/uL (4.8-10.8)
[2023-03-07 04:38] LABS: Anion Gap 12 mmol/L (10-20); BUN (Urea Nitrogen) 22 mg/dL (9.8-20.1); Calc. Creatinine Clearance 60 mL/min (70-130); Calcium 9.5 mg/dL (7.8-10.44); Carbon Dioxide 25 mmol/L (23-31); Chloride 95 mmol/L (98-107); Estimated GFR 67; Glucose 94 mg/dL (83-110); Potassium 4.1 mmol/L (3.5-5.1); Sodium 128 mmol/L (136-145)
[2023-03-07] MEDS: Levothyroxine Sodium 125 MCG TAB PO SCH (06:13)
[2023-03-07] MEDS: Spironolactone 25 MG TAB PO SCH (09:21)
[2023-03-07] MEDS: Heparin 5,000 UNITS/ML VIAL SC SCH ×2 (09:22→20:42)
[2023-03-07] MEDS: Folic Acid 1 MG TAB PO SCH (09:22)
[2023-03-07] MEDS: Famotidine 20 MG TAB PO SCH ×2 (09:22→20:42)
[2023-03-07] MEDS: Potassium Chloride 10 MEQ TAB PO SCH (09:22)
[2023-03-07] MEDS: Sertraline 100 MG TAB PO SCH (09:24)
[2023-03-07] MEDS: Cefepime 1 GM in Sodium Chloride 0.9% 100 ML IVPB SCH ×2 (09:25→20:43)
[2023-03-08] MEDS: Levothyroxine Sodium 125 MCG TAB PO SCH (05:28)
[2023-03-08] MEDS: Famotidine 20 MG TAB PO SCH ×2 (08:07→20:43)
[2023-03-08] MEDS: Potassium Chloride 10 MEQ TAB PO SCH (08:07)
[2023-03-08] MEDS: Sertraline 100 MG TAB PO SCH (08:07)
[2023-03-08] MEDS: Heparin 5,000 UNITS/ML VIAL SC SCH ×2 (08:07→20:43)
[2023-03-08] MEDS: Folic Acid 1 MG TAB PO SCH (08:07)
[2023-03-08] MEDS: Cefepime 1 GM in Sodium Chloride 0.9% 100 ML IVPB SCH (08:08)
[2023-03-08] MEDS: Spironolactone 25 MG TAB PO SCH (08:08)
[2023-03-08 08:20] LABS: Albumin 3.1 g/dL (3.4-4.8); Anion Gap 13 mmol/L (10-20); BUN (Urea Nitrogen) 19 mg/dL (9.8-20.1); BUN/Creatinine Ratio 26.76; Calc. Creatinine Clearance 72 mL/min (70-130); Calcium 9.5 mg/dL (7.8-10.44); Carbon Dioxide 25 mmol/L (23-31); Chloride 95 mmol/L (98-107); Estimated GFR 83; Glucose 93 mg/dL (83-110); Phosphorus 2.7 mg/dL (2.3-4.7); Potassium 4.3 mmol/L (3.5-5.1); Sodium 129 mmol/L (136-145)
[2023-03-08] MEDS ORDERED: SUGAMMADEX SODIUM 200 MG/2 ML VIAL ONE ×3 (08:29→11:46)
[2023-03-08] MEDS ORDERED: fentaNYL PF 100 MCG/2 ML SYRINGE ONE (08:29)
[2023-03-08] MEDS ORDERED: Dexamethasone 20 MG/5 ML VIAL ONE (10:15)
[2023-03-08] MEDS ORDERED: Rocuronium Bromide 10 MG/ML (10ML VIAL) ONE (10:15)
[2023-03-08] MEDS ORDERED: PROPOFOL 200 MG/20 ML VIAL ONE (10:15)
[2023-03-08] MEDS ORDERED: Ondansetron PF 4 MG/2 ML Vial ONE (10:15)
[2023-03-08] MEDS ORDERED: Lidocaine 1% PF 5 ML VIAL ONE (10:15)
[2023-03-08] MEDS ORDERED: Bupivacaine PF 0.5% 30 ML VIAL ONE (11:01)
[2023-03-08] MEDS ORDERED: EPINEPHrine 1 MG/ML AMP ONE (11:01)
[2023-03-09] MEDS: Levothyroxine Sodium 125 MCG TAB PO SCH (05:46)
[2023-03-09] MEDS: Potassium Chloride 10 MEQ TAB PO SCH (08:37)
[2023-03-09] MEDS: Heparin 5,000 UNITS/ML VIAL SC SCH ×2 (08:38→21:51)
[2023-03-09] MEDS: Famotidine 20 MG TAB PO SCH ×2 (08:38→21:51)
[2023-03-09] MEDS: Folic Acid 1 MG TAB PO SCH (08:38)
[2023-03-09] MEDS: Sertraline 100 MG TAB PO SCH (08:38)
[2023-03-09] MEDS: Spironolactone 25 MG TAB PO SCH (08:39)
[2023-03-09 09:09] LABS: #Monocytes 1.3 thou/uL (0.11-0.59); #Neutrophils 12.5 thou/uL (1.40-6.50); %Basophils 0.1 % (0.0-1.0); %Lymphocytes 4.6 % (21.0-51.0); %Monocytes 8.6 % (0.0-10.0); %Neutrophils 86.2 % (42.0-75.0); Hematocrit 50.6 % (36.0-47.0); Hemoglobin 16.9 g/dL (12.0-16.0); Mean Corpuscular HGB CONC 33.4 g/dL (32.0-36.0); Mean Corpuscular Hemoglobin 32.3 pg (27.0-31.0); Mean Corpuscular Volume 96.6 fl (78.0-98.0); Mean Platelet Volume 11.9 fL (7.4-10.4); Platelet Count 255 10x3/uL (130-400); RBC Distribution Width 15.3 % (11.5-14.5); Red Blood Cell (RBC) Count 5.24 mill/uL (4.20-5.40); White Blood Cell (WBC) Count 14.5 10x3/uL (4.8-10.8)
[2023-03-09 09:54] LABS: Anion Gap 13 mmol/L (10-20); BUN (Urea Nitrogen) 24 mg/dL (9.8-20.1); Calc. Creatinine Clearance 68 mL/min (70-130); Calcium 9.8 mg/dL (7.8-10.44); Carbon Dioxide 26 mmol/L (23-31); Chloride 97 mmol/L (98-107); Estimated GFR 77; Glucose 103 mg/dL (83-110); Potassium 4.5 mmol/L (3.5-5.1); Sodium 131 mmol/L (136-145)
[2023-03-09] MEDS: DOBUTamine 500 mg/250 ml 250 ML IVPB SCH (11:39)
[2023-03-09 12:39] LABS: Digoxin 1.05 ng/mL (0.8-2.0)
[2023-03-09 18:14] LABS: Fungus Stain Final report (.)
[2023-03-10 04:52] LABS: #Monocytes 1.5 thou/uL (0.11-0.59); #Neutrophils 8.5 thou/uL (1.40-6.50); %Basophils 0.3 % (0.0-1.0); %Eosinophils 0.4 % (0.0-10.0); %Lymphocytes 6.6 % (21.0-51.0); %Monocytes 13.8 % (0.0-10.0); %Neutrophils 78.3 % (42.0-75.0); Hematocrit 46.3 % (36.0-47.0); Hemoglobin 15.6 g/dL (12.0-16.0); Mean Corpuscular HGB CONC 33.7 g/dL (32.0-36.0); Mean Corpuscular Hemoglobin 32.4 pg (27.0-31.0); Mean Corpuscular Volume 96.3 fl (78.0-98.0); Mean Platelet Volume 11.3 fL (7.4-10.4); Platelet Count 291 10x3/uL (130-400); RBC Distribution Width 15.4 % (11.5-14.5); Red Blood Cell (RBC) Count 4.81 mill/uL (4.20-5.40); White Blood Cell (WBC) Count 10.9 10x3/uL (4.8-10.8)
[2023-03-10 05:18] LABS: Anion Gap 12 mmol/L (10-20); BUN (Urea Nitrogen) 26 mg/dL (9.8-20.1); Calc. Creatinine Clearance 66 mL/min (70-130); Calcium 9.8 mg/dL (7.8-10.44); Carbon Dioxide 27 mmol/L (23-31); Chloride 96 mmol/L (98-107); Estimated GFR 77; Glucose 106 mg/dL (83-110); Potassium 4.5 mmol/L (3.5-5.1); Sodium 130 mmol/L (136-145)
[2023-03-10] MEDS: Levothyroxine Sodium 125 MCG TAB PO SCH (05:22)
[2023-03-10] MEDS: Acetaminophen 325 MG TAB PO PRN (09:28)
[2023-03-10] MEDS: Sertraline 100 MG TAB PO SCH (09:29)
[2023-03-10] MEDS: Folic Acid 1 MG TAB PO SCH (09:30)
[2023-03-10] MEDS: Famotidine 20 MG TAB PO SCH ×2 (09:30→20:44)
[2023-03-10] MEDS: Heparin 5,000 UNITS/ML VIAL SC SCH ×2 (09:30→20:44)
[2023-03-10] MEDS: DOBUTamine 500 mg/250 ml 250 ML IVPB SCH (20:42)
[2023-03-11 03:56] LABS: Hematocrit 42.3 % (36.0-47.0); Hemoglobin 14.5 g/dL (12.0-16.0); Mean Corpuscular HGB CONC 34.3 g/dL (32.0-36.0); Mean Corpuscular Hemoglobin 32.5 pg (27.0-31.0); Mean Corpuscular Volume 94.8 fl (78.0-98.0); Mean Platelet Volume 10.7 fL (7.4-10.4); Platelet Count 299 10x3/uL (130-400); RBC Distribution Width 15.2 % (11.5-14.5); Red Blood Cell (RBC) Count 4.46 mill/uL (4.20-5.40); White Blood Cell (WBC) Count 8.3 10x3/uL (4.8-10.8)
[2023-03-11 04:11] LABS: Delete Auto Diff?? YES; Manual Diff?? YES
[2023-03-11 04:21] LABS: Anion Gap 9 mmol/L (10-20); BUN (Urea Nitrogen) 18 mg/dL (9.8-20.1); Calc. Creatinine Clearance 77 mL/min (70-130); Calcium 9.5 mg/dL (7.8-10.44); Carbon Dioxide 29 mmol/L (23-31); Chloride 98 mmol/L (98-107); Estimated GFR 86; Glucose 97 mg/dL (83-110); Potassium 4.3 mmol/L (3.5-5.1); Sodium 132 mmol/L (136-145)
[2023-03-11 04:44] LABS: CellaVision Operator ID lab.abc; Eosinophils 4 % (0-10); Lymphocytes 10 % (21-51); Monocytes 9 % (0-10); Neutrophil 77 % (42-75); Platelet Adequacy Comment Platelets Normal; Total Cell Count 100
[2023-03-11] MEDS: Levothyroxine Sodium 125 MCG TAB PO SCH (05:02)
[2023-03-11] MEDS: Famotidine 20 MG TAB PO SCH ×2 (08:18→21:58)
[2023-03-11] MEDS: Folic Acid 1 MG TAB PO SCH (08:18)
[2023-03-11] MEDS: Heparin 5,000 UNITS/ML VIAL SC SCH ×2 (08:19→21:59)
[2023-03-11] MEDS: Acetaminophen 325 MG TAB PO PRN (21:58)
[2023-03-12 04:04] LABS: #Eosinphils 0.1 thou/uL (0.0-0.7); #Monocytes 1.1 thou/uL (0.11-0.59); #Neutrophils 4.8 thou/uL (1.40-6.50); %Basophils 0.6 % (0.0-1.0); %Eosinophils 1.7 % (0.0-10.0); %Lymphocytes 14.4 % (21.0-51.0); %Monocytes 15.3 % (0.0-10.0); %Neutrophils 67.4 % (42.0-75.0); Hematocrit 44.4 % (36.0-47.0); Hemoglobin 14.9 g/dL (12.0-16.0); Mean Corpuscular HGB CONC 33.6 g/dL (32.0-36.0); Mean Corpuscular Hemoglobin 32.2 pg (27.0-31.0); Mean Corpuscular Volume 95.9 fl (78.0-98.0); Mean Platelet Volume 11.4 fL (7.4-10.4); Platelet Count 323 10x3/uL (130-400); RBC Distribution Width 15.3 % (11.5-14.5); Red Blood Cell (RBC) Count 4.63 mill/uL (4.20-5.40); White Blood Cell (WBC) Count 7.1 10x3/uL (4.8-10.8)
[2023-03-12 04:27] LABS: Anion Gap 9 mmol/L (10-20); BUN (Urea Nitrogen) 13 mg/dL (9.8-20.1); Calc. Creatinine Clearance 79 mL/min (70-130); Calcium 9.4 mg/dL (7.8-10.44); Carbon Dioxide 31 mmol/L (23-31); Chloride 98 mmol/L (98-107); Estimated GFR 86; Glucose 91 mg/dL (83-110); Potassium 4.2 mmol/L (3.5-5.1); Sodium 134 mmol/L (136-145)
[2023-03-12] MEDS: Levothyroxine Sodium 125 MCG TAB PO SCH (05:45)
[2023-03-12] MEDS ORDERED: CEFAZOLIN 2 GM VIAL ONE (06:23)
[2023-03-12] MEDS ORDERED: Lidocaine 1% (PF) 30 ML VIAL ONE (06:23)
[2023-03-12] MEDS ORDERED: Gentamicin 80 MG/2 ML VIAL ONE (06:23)
[2023-03-12] MEDS ORDERED: fentaNYL 50 mcg/mL 1 mL Vial ONE (07:00)
[2023-03-12] MEDS ORDERED: Midazolam HCl 2 mg/2 ml Vial ONE ×2 (07:00→08:12)
[2023-03-12] MEDS ORDERED: Naloxone HCl 0.4 mg/ml Vial ONE (07:01)
[2023-03-12] MEDS: Famotidine 20 MG TAB PO SCH ×2 (08:17→20:21)
[2023-03-12] MEDS: Folic Acid 1 MG TAB PO SCH (08:17)
[2023-03-12] MEDS ORDERED: Iopamidol 370 76% 100 ML VIAL ONE (09:37)
[2023-03-12] MEDS ORDERED: Polyethylene Glycol 3350 17 GM Packet PO PRN (15:18)
[2023-03-12] MEDS ORDERED: Bisacodyl 10 MG SUPP PR PRN (15:18)
[2023-03-13] MEDS: Levothyroxine Sodium 125 MCG TAB PO SCH (05:52)
[2023-03-13 07:29] LABS: #Eosinphils 0.2 thou/uL (0.0-0.7); #Neutrophils 8.5 thou/uL (1.40-6.50); %Basophils 0.4 % (0.0-1.0); %Eosinophils 1.4 % (0.0-10.0); %Lymphocytes 7.7 % (21.0-51.0); %Monocytes 9.8 % (0.0-10.0); %Neutrophils 80.1 % (42.0-75.0); Hematocrit 45.3 % (36.0-47.0); Hemoglobin 15.5 g/dL (12.0-16.0); Mean Corpuscular HGB CONC 34.2 g/dL (32.0-36.0); Mean Corpuscular Hemoglobin 32.1 pg (27.0-31.0); Mean Corpuscular Volume 93.8 fl (78.0-98.0); Mean Platelet Volume 11.2 fL (7.4-10.4); Platelet Count 302 10x3/uL (130-400); RBC Distribution Width 15.4 % (11.5-14.5); Red Blood Cell (RBC) Count 4.83 mill/uL (4.20-5.40); White Blood Cell (WBC) Count 10.5 10x3/uL (4.8-10.8)
[2023-03-13] MEDS: Polyethylene Glycol 3350 17 GM Packet PO SCH (08:12)
[2023-03-13] MEDS: Folic Acid 1 MG TAB PO SCH (08:12)
[2023-03-13] MEDS: Famotidine 20 MG TAB PO SCH ×2 (08:12→20:23)
[2023-03-13 08:23] LABS: Chloride 98 mmol/L (98-107); Potassium 4.1 mmol/L (3.5-5.1); Sodium 132 mmol/L (136-145)
[2023-03-13 08:24] LABS: Calcium 9.5 mg/dL (7.8-10.44); Glucose 107 mg/dL (83-110)
[2023-03-13 08:26] LABS: Anion Gap 11 mmol/L (10-20); Carbon Dioxide 27 mmol/L (23-31)
[2023-03-13 08:28] LABS: Calc. Creatinine Clearance 81 mL/min (70-130); Estimated GFR 87
[2023-03-13 08:29] LABS: BUN (Urea Nitrogen) 14 mg/dL (9.8-20.1)
[2023-03-13] MEDS: Sertraline 100 MG TAB PO SCH (13:37)
[2023-03-14] MEDS ORDERED: Melatonin 3 MG TAB PO PRN (00:30)
[2023-03-14 04:27] LABS: #Basophils 0.1 thou/uL (0.0-0.2); #Eosinphils 0.1 thou/uL (0.0-0.7); #Monocytes 1.2 thou/uL (0.11-0.59); #Neutrophils 8.1 thou/uL (1.40-6.50); %Basophils 0.5 % (0.0-1.0); %Eosinophils 1.2 % (0.0-10.0); %Lymphocytes 8.9 % (21.0-51.0); %Monocytes 11.1 % (0.0-10.0); %Neutrophils 77.5 % (42.0-75.0); Hematocrit 46.3 % (36.0-47.0); Hemoglobin 15.8 g/dL (12.0-16.0); Mean Corpuscular HGB CONC 34.1 g/dL (32.0-36.0); Mean Corpuscular Hemoglobin 32.2 pg (27.0-31.0); Mean Corpuscular Volume 94.5 fl (78.0-98.0); Mean Platelet Volume 10.9 fL (7.4-10.4); Platelet Count 270 10x3/uL (130-400); RBC Distribution Width 15.3 % (11.5-14.5); White Blood Cell (WBC) Count 10.4 10x3/uL (4.8-10.8)
[2023-03-14 04:52] LABS: Anion Gap 11 mmol/L (10-20); BUN (Urea Nitrogen) 15 mg/dL (9.8-20.1); Calc. Creatinine Clearance 81 mL/min (70-130); Carbon Dioxide 28 mmol/L (23-31); Chloride 96 mmol/L (98-107); Estimated GFR 87; Glucose 96 mg/dL (83-110); Potassium 4.1 mmol/L (3.5-5.1); Sodium 131 mmol/L (136-145)
[2023-03-14] MEDS: Levothyroxine Sodium 125 MCG TAB PO SCH (05:38)
[2023-03-14] MEDS: Acetaminophen 325 MG TAB PO PRN (10:12)
[2023-03-14] MEDS: Sertraline 100 MG TAB PO SCH (10:13)
[2023-03-14] MEDS: Polyethylene Glycol 3350 17 GM Packet PO SCH (10:13)
[2023-03-14] MEDS: Folic Acid 1 MG TAB PO SCH (10:13)
[2023-03-14] MEDS: Famotidine 20 MG TAB PO SCH (10:14)
[2023-03-14 11:32] VITALS: TEMP 97.8
[2023-03-14 15:44] VITALS: BP 102/59
== END 2023-03-14 16:50 | DRG 166 ==
LOC: ERS 21:48 → 2NO 03-02 00:50 → OBSVTOIN 03-02 09:05
PROVIDERS: ADMIT Hospitalist; ATTEND Emergency Medicine
PROC: 0W9B3ZZ Drainage of Left Pleural Cavity, Percutaneous Approach (ICD-10-PCS; 2023-03-03)
PROC: 0B9P4ZZ Drainage of Left Pleura, Percutaneous Endoscopic Approach (ICD-10-PCS; 2023-03-08)
PROC: 0BBP4ZX Excision of Left Pleura, Percutaneous Endoscopic Approach, Diagnostic (ICD-10-PCS; 2023-03-08)
PROC: 0JH606Z Insertion of Pacemaker, Dual Chamber into Chest Subcutaneous Tissue and Fascia, Open Approach (ICD-10-PCS; principal; 2023-03-12)
PROC: 02H63JZ Insertion of Pacemaker Lead into Right Atrium, Percutaneous Approach (ICD-10-PCS; 2023-03-12)
PROC: 02HK3JZ Insertion of Pacemaker Lead into Right Ventricle, Percutaneous Approach (ICD-10-PCS; 2023-03-12)
DX: J90 Pleural effusion, not elsewhere classified (principal); J96.01 Acute respiratory failure with hypoxia; I48.19 Other persistent atrial fibrillation; M84.48XA Pathological fracture, other site, initial encounter for fracture; I50.32 Chronic diastolic (congestive) heart failure; J98.11 Atelectasis; E22.2 Syndrome of inappropriate secretion of antidiuretic hormone; I49.5 Sick sinus syndrome; E03.9 Hypothyroidism, unspecified; Z20.822 Contact with and (suspected) exposure to COVID-19; I95.9 Hypotension, unspecified; J94.2 Hemothorax; K59.00 Constipation, unspecified; Z79.899 Other long term (current) drug therapy; Z79.01 Long term (current) use of anticoagulants; Z85.3 Personal history of malignant neoplasm of breast; Z87.891 Personal history of nicotine dependence
CPT/HCPCS: 33208; 36415; 36416; 70470; 71045; 71046; 71260; 74177; 80048; 80053; 80069; 80162; 82040; 82150; 82550; 82945; 83615; 83735; 83880; 83930; 83935; 84157; 84439; 84443; 84478; 84481; 84484; 85025; 85060; 85610; 86140; 86850; 86900; 86901; 87070; 87116; 87205; 87206; 88112; 88305; 88342; 89051; 93005; 93010; 93306; 96374; 96375; 97139; 99152; 99153; C1785; C1898; G0378; J0171; J0692; J1100; J1250; J1580; J1644; J1650; J1940; J2001; J2250; J2310; J2405; J2704; J3010; J3490; Q9967; S0020; S0028; U0002

== ENCOUNTER 2023-04-06 23:24 | Emergency (ER) | payer OTHER, MEDICARE, BC | END 2023-04-07 10:50 | disposition home or self-care (01) | LOC: ERS 23:24 | DX: Z04.3 Encounter for examination and observation following other accident (principal); E03.9 Hypothyroidism, unspecified; Z87.891 Personal history of nicotine dependence | CPT/HCPCS: 99284 ==

== ENCOUNTER 2023-06-23 08:19 | Emergency (ER) | payer MEDICARE, BC ==
[2023-06-23 09:15] LABS: #Basophils 0.1 thou/uL (0.0-0.2); #Eosinphils 0.2 thou/uL (0.0-0.7); #Monocytes 1.3 thou/uL (0.11-0.59); #Neutrophils 7.1 thou/uL (1.40-6.50); %Basophils 0.6 % (0.0-1.0); %Eosinophils 2.1 % (0.0-10.0); %Lymphocytes 12.2 % (21.0-51.0); %Monocytes 12.7 % (0.0-10.0); %Neutrophils 72.2 % (42.0-75.0); Hematocrit 40.3 % (36.0-47.0); Hemoglobin 13.6 g/dL (12.0-16.0); Mean Corpuscular HGB CONC 33.7 g/dL (32.0-36.0); Mean Corpuscular Hemoglobin 31.5 pg (27.0-31.0); Mean Corpuscular Volume 93.3 fl (78.0-98.0); Mean Platelet Volume 11.5 fL (7.4-10.4); Platelet Count 356 10x3/uL (130-400); RBC Distribution Width 16.3 % (11.5-14.5); Red Blood Cell (RBC) Count 4.32 mill/uL (4.20-5.40); White Blood Cell (WBC) Count 9.9 10x3/uL (4.8-10.8)
[2023-06-23] MEDS ORDERED: Morphine 4 MG/ML VIAL ONE (09:19)
[2023-06-23] MEDS ORDERED: Ondansetron PF 4 MG/2 ML Vial ONE (09:19)
[2023-06-23 09:38] LABS: ALT (SGPT) Less than 7 U/L (8-55); AST (SGOT) 22 U/L (5-34); Albumin 3.3 g/dL (3.4-4.8); Alkaline Phosphatase 59 U/L (40-110); Anion Gap 13 mmol/L (10-20); BUN (Urea Nitrogen) 18 mg/dL (9.8-20.1); Bilirubin, Total 0.8 mg/dL (0.2-1.2); CK (CPK) 16 U/L (29-168); Calc. Creatinine Clearance 0 mL/min (70-130); Calcium 9.2 mg/dL (7.8-10.44); Carbon Dioxide 26 mmol/L (23-31); Chloride 101 mmol/L (98-107); Estimated GFR 84; Globulin 4.2 g/dL (2.4-3.5); Glucose 101 mg/dL (83-110); Lipase 8 U/L (8-78); Potassium 4.3 mmol/L (3.5-5.1); Protein, Total 7.5 g/dL (5.8-8.1); Sodium 136 mmol/L (136-145)
[2023-06-23 09:41] LABS: Troponin I Less than 0.010 ng/mL (< 0.028)
[2023-06-23 10:52] LABS: Bacteria/HPF None Seen HPF (None Seen); Bilirubin Negative (Negative); Blood, Urine 2+ (Negative); CAUTI Indications for Culture Pelvic or flank pain; Clarity Clear (Clear); Glucose, Urine (Dipstick) Normal (Negative); Ketone, Urine Negative (Negative); Leukocyte Negative Leu/uL (Negative); Nitrite Negative (Negative); Protein, Urine (Dipstick) Negative (Neg-Trace); RBC/HPF 21-50 HPF (0-3); Specific Gravity, Urine 1.032 (1.002-1.036); Squamous Epithelial 0-3 HPF (0-3); pH, Urine 5.5 (5.0-9.0)
[2023-06-23 10:54] LABS: SARS-CoV-2 NAA Rapid Test Not Detected (NotDetected)
[2023-06-23 10:54] LABS: Urine Culture Reflex No No
[2023-06-23] MEDS ORDERED: Iopamidol-370 76% 500 ML MDV (1 ML CHARGE) ONE (11:17)
== END 2023-06-23 12:06 | disposition home or self-care (01) ==
LOC: ERS 08:19
DX: K56.41 Fecal impaction (principal); I48.91 Unspecified atrial fibrillation; E03.9 Hypothyroidism, unspecified; Z79.01 Long term (current) use of anticoagulants; Z87.891 Personal history of nicotine dependence; Z79.899 Other long term (current) drug therapy
CPT/HCPCS: 51701; 71045; 74177; 80053; 81001; 82550; 83690; 84484; 85025; 96374; 96375; 99284; U0002; 36415; J2270; J2405; Q9967

== ENCOUNTER 2023-07-21 15:17 | Inpatient (IN) | payer BC, MEDICARE ==
[2023-07-21 15:37] LABS: Hematocrit 47.8 % (36.0-47.0); Hemoglobin 16.3 g/dL (12.0-16.0); Manual Diff?? YES; Mean Corpuscular HGB CONC 34.1 g/dL (32.0-36.0); Mean Corpuscular Hemoglobin 31.8 pg (27.0-31.0); Mean Corpuscular Volume 93.2 fl (78.0-98.0); Mean Platelet Volume 10.4 fL (7.4-10.4); Platelet Count 271 10x3/uL (130-400); RBC Distribution Width 15.9 % (11.5-14.5); Red Blood Cell (RBC) Count 5.13 mill/uL (4.20-5.40); White Blood Cell (WBC) Count 6.9 10x3/uL (4.8-10.8)
[2023-07-21 15:52] LABS: Delete Auto Diff?? YES
[2023-07-21 15:59] LABS: ALT (SGPT) Less than 7 U/L (8-55); AST (SGOT) 17 U/L (5-34); Albumin 3.4 g/dL (3.4-4.8); Alkaline Phosphatase 53 U/L (40-110); Anion Gap 18 mmol/L (10-20); BUN (Urea Nitrogen) 11 mg/dL (9.8-20.1); Bilirubin, Total 0.4 mg/dL (0.2-1.2); Calc. Creatinine Clearance 0 mL/min (70-130); Calcium 8.7 mg/dL (7.8-10.44); Carbon Dioxide 20 mmol/L (23-31); Chloride 95 mmol/L (98-107); Digoxin 0.44 ng/mL (0.8-2.0); Estimated GFR 85; Globulin 3.8 g/dL (2.4-3.5); Glucose 89 mg/dL (83-110); Lipase 26 U/L (8-78); Potassium 4.6 mmol/L (3.5-5.1); Protein, Total 7.2 g/dL (5.8-8.1); Sodium 128 mmol/L (136-145)
[2023-07-21 16:00] LABS: Troponin I Less than 0.010 ng/mL (< 0.028)
[2023-07-21 16:13] LABS: Band 12 % (5-11); CellaVision Operator ID LAB.KB; Large Platelets 7.7 % (0-5); Lymphocytes 10 % (21-51); Monocytes 6 % (0-10); Neutrophil 73 % (42-75); Ovalocytes SLIGHT = 2-5 cells HPF (0-1); Platelet Adequacy Comment Platelets Normal; Polychromasia SLIGHT = 2-3 cells HPF (0-2); Rouleaux Formation SLIGHT = 1-5 cells HPF (None Seen); Smudge Cells 9.6 %; Total Cell Count 104
[2023-07-21 16:57] LABS: SARS-CoV-2 NAA Rapid Test DETECTED (NotDetected)
[2023-07-21 20:16] LABS: Bacteria/HPF None Seen HPF (None Seen); Bilirubin Negative (Negative); Blood, Urine 3+ (Negative); CAUTI Indications for Culture Alt mental st,lethar; Clarity Turbid (Clear); Glucose, Urine (Dipstick) Normal (Negative); Ketone, Urine 10 mg/dL (Negative); Leukocyte Negative Leu/uL (Negative); Nitrite Negative (Negative); Protein, Urine (Dipstick) 20 mg/dL (Neg-Trace); RBC/HPF 21-50 HPF (0-3); Specific Gravity, Urine 1.019 (1.002-1.036); Squamous Epithelial 0-3 HPF (0-3); Urobilinogen Normal mg/dL (Less than 2); WBC/HPF 0-3 HPF (0-3)
[2023-07-21 20:17] LABS: Urine Culture Reflex No No
[2023-07-21] MEDS ORDERED: Ondansetron ODT 4 MG TAB SL PRN (21:00)
[2023-07-21] MEDS ORDERED: Ondansetron PF 4 MG/2 ML Vial IVP PRN (21:00)
[2023-07-21] MEDS ORDERED: Acetaminophen 325 MG TAB PO PRN ×2 (21:37→21:58)
[2023-07-21] MEDS ORDERED: Albuterol 200 PUFF (6.7GM INHALER) INH PRN (21:58)
[2023-07-21] MEDS ORDERED: Acetaminophen 650 MG Suppository PR PRN (21:58)
[2023-07-21] MEDS ORDERED: Apixaban 5 MG TAB PO SCH (22:00)
[2023-07-21] MEDS ORDERED: Ipratropium/Albuterol 3 ML NEB NEB SCH (22:30)
[2023-07-21] MEDS ORDERED: REMDESIVIR 200 MG in Sodium Chloride 0.9% 250 ML 210 ML IV SCH (23:00)
[2023-07-21] MEDS ORDERED: Ipratropium/Albuterol 3 ML NEB ONE (23:33)
[2023-07-21] MEDS: Albuterol 200 PUFF (6.7GM INHALER) INH SCH (23:51)
[2023-07-22] MEDS ORDERED: Apixaban 5 MG TAB ONE ×2 (00:11→08:18)
[2023-07-22] MEDS ORDERED: cefTRIAXone (ROCEPHIN) 2 GM VIAL ONE (00:12)
[2023-07-22] MEDS ORDERED: Albuterol 200 PUFF (6.7GM INHALER) ONE (00:12)
[2023-07-22] MEDS ORDERED: Sodium Chloride 0.9% 100 ML ONE (00:12)
[2023-07-22] MEDS: Sodium Chloride 0.9% 1,000 ML IV SCH ×2 (00:38→08:21)
[2023-07-22] MEDS: cefTRIAXone\\ROCEPHIN 2 GM in Sodium Chloride 0.9% 100 ML IVPB SCH ×2 (00:38→21:06)
[2023-07-22 01:27] LABS: Troponin I Less than 0.010 ng/mL (< 0.028)
[2023-07-22] MEDS: Albuterol 200 PUFF (6.7GM INHALER) INH SCH ×5 (02:45→22:01)
[2023-07-22] MEDS: Doxycycline 100 MG in Sodium Chloride 0.9% 100 ML IVPB SCH ×2 (02:45→11:47)
[2023-07-22 05:30] LABS: #Neutrophils 2.8 thou/uL (1.40-6.50); %Basophils 0.6 % (0.0-1.0); %Eosinophils 0.4 % (0.0-10.0); %Lymphocytes 25.7 % (21.0-51.0); %Monocytes 18.7 % (0.0-10.0); %Neutrophils 54.4 % (42.0-75.0); Hematocrit 44.3 % (36.0-47.0); Hemoglobin 15.3 g/dL (12.0-16.0); Mean Corpuscular HGB CONC 34.5 g/dL (32.0-36.0); Mean Corpuscular Hemoglobin 31.5 pg (27.0-31.0); Mean Corpuscular Volume 91.3 fl (78.0-98.0); Mean Platelet Volume 10.6 fL (7.4-10.4); Platelet Count 256 10x3/uL (130-400); RBC Distribution Width 15.6 % (11.5-14.5); Red Blood Cell (RBC) Count 4.85 mill/uL (4.20-5.40); White Blood Cell (WBC) Count 5.1 10x3/uL (4.8-10.8)
[2023-07-22 05:46] LABS: ALT (SGPT) Less than 7 U/L (8-55); AST (SGOT) 14 U/L (5-34); Albumin 3.2 g/dL (3.4-4.8); Alkaline Phosphatase 47 U/L (40-110); Anion Gap 13 mmol/L (10-20); BUN (Urea Nitrogen) 10 mg/dL (9.8-20.1); Bilirubin, Total 0.3 mg/dL (0.2-1.2); Calc. Creatinine Clearance 0 mL/min (70-130); Calcium 8.9 mg/dL (7.8-10.44); Carbon Dioxide 26 mmol/L (23-31); Chloride 101 mmol/L (98-107); Estimated GFR 86; Globulin 3.7 g/dL (2.4-3.5); Glucose 80 mg/dL (83-110); Potassium 3.8 mmol/L (3.5-5.1); Protein, Total 6.9 g/dL (5.8-8.1); Sodium 136 mmol/L (136-145)
[2023-07-22] MEDS ORDERED: Digoxin 0.125 MG TAB ONE (08:18)
[2023-07-22] MEDS ORDERED: Famotidine 20 MG TAB ONE (08:18)
[2023-07-22] MEDS ORDERED: Dexamethasone 10 MG/ML VIAL ONE (08:18)
[2023-07-22] MEDS: Dexamethasone 10 MG/ML VIAL SLOW IVP SCH (08:22)
[2023-07-22] MEDS: Apixaban 5 MG TAB PO SCH ×2 (08:22→21:04)
[2023-07-22] MEDS: Digoxin 0.125 MG TAB PO SCH (08:22)
[2023-07-22] MEDS: Famotidine 20 MG TAB PO SCH ×2 (08:23→21:04)
[2023-07-22] MEDS ORDERED: Carbidopa/Levodopa 25-100 mg Tablet PO SCH ×2 (14:07→15:00)
[2023-07-22] MEDS ORDERED: REMDESIVIR 100 MG in Sodium Chloride 0.9% 250 ML 230 ML IV SCH (21:00)
[2023-07-22] MEDS: Benzonatate 100 MG CAP PO PRN (21:04)
[2023-07-22] MEDS: Carbidopa/Levodopa 25-100 mg Tablet PO SCH (21:04)
[2023-07-23] MEDS: cefTRIAXone\\ROCEPHIN 2 GM in Sodium Chloride 0.9% 100 ML IVPB SCH ×2 (00:30→22:50)
[2023-07-23] MEDS: Doxycycline 100 MG in Sodium Chloride 0.9% 100 ML IVPB SCH ×2 (01:27→10:02)
[2023-07-23] MEDS: Albuterol 200 PUFF (6.7GM INHALER) INH SCH ×6 (02:06→21:51)
[2023-07-23] MEDS: Levothyroxine Sodium 125 MCG TAB PO SCH (06:50)
[2023-07-23] MEDS: Famotidine 20 MG TAB PO SCH ×2 (09:47→22:50)
[2023-07-23] MEDS: Apixaban 5 MG TAB PO SCH ×2 (09:48→22:50)
[2023-07-23] MEDS: Zinc Sulfate 220 MG CAP PO SCH (09:48)
[2023-07-23] MEDS: Cholecalciferol 1,000 UNITS (25 MCG) TAB PO SCH (09:48)
[2023-07-23] MEDS: Ascorbic Acid 500 mg Chewable Tablet PO SCH (09:48)
[2023-07-23] MEDS: Digoxin 0.125 MG TAB PO SCH (09:48)
[2023-07-23] MEDS: Dexamethasone 10 MG/ML VIAL SLOW IVP SCH (09:49)
[2023-07-23] MEDS: Carbidopa/Levodopa 25-100 mg Tablet PO SCH ×3 (10:02→22:50)
[2023-07-24] MEDS: Albuterol 200 PUFF (6.7GM INHALER) INH SCH ×6 (02:29→22:03)
[2023-07-24] MEDS: Levothyroxine Sodium 125 MCG TAB PO SCH (06:34)
[2023-07-24] MEDS: Dexamethasone 10 MG/ML VIAL SLOW IVP SCH (08:20)
[2023-07-24] MEDS: Apixaban 5 MG TAB PO SCH ×2 (08:21→19:59)
[2023-07-24] MEDS: Digoxin 0.125 MG TAB PO SCH (08:21)
[2023-07-24] MEDS: Ascorbic Acid 500 mg Chewable Tablet PO SCH (08:21)
[2023-07-24] MEDS: Zinc Sulfate 220 MG CAP PO SCH (08:21)
[2023-07-24] MEDS: Famotidine 20 MG TAB PO SCH ×2 (08:21→19:59)
[2023-07-24] MEDS: Cholecalciferol 1,000 UNITS (25 MCG) TAB PO SCH (08:21)
[2023-07-24] MEDS: Carbidopa/Levodopa 25-100 mg Tablet PO SCH ×3 (08:25→19:59)
[2023-07-24] MEDS: Melatonin 3 MG TAB PO PRN (22:39)
[2023-07-24] MEDS: Benzonatate 100 MG CAP PO PRN (22:39)
[2023-07-24] MEDS: cefTRIAXone\\ROCEPHIN 2 GM in Sodium Chloride 0.9% 100 ML IVPB SCH (22:39)
[2023-07-25] MEDS: Albuterol 200 PUFF (6.7GM INHALER) INH SCH ×5 (08:56→18:22)
[2023-07-25] MEDS: Levothyroxine Sodium 125 MCG TAB PO SCH (08:56)
[2023-07-25] MEDS: Dexamethasone 10 MG/ML VIAL SLOW IVP SCH (09:59)
[2023-07-25] MEDS: Apixaban 5 MG TAB PO SCH ×2 (09:59→20:47)
[2023-07-25] MEDS: Digoxin 0.125 MG TAB PO SCH (09:59)
[2023-07-25] MEDS: Zinc Sulfate 220 MG CAP PO SCH (09:59)
[2023-07-25] MEDS: Cholecalciferol 1,000 UNITS (25 MCG) TAB PO SCH (09:59)
[2023-07-25] MEDS: Famotidine 20 MG TAB PO SCH ×2 (09:59→20:47)
[2023-07-25] MEDS: Ascorbic Acid 500 mg Chewable Tablet PO SCH (09:59)
[2023-07-25] MEDS: Carbidopa/Levodopa 25-100 mg Tablet PO SCH ×3 (10:00→20:47)
[2023-07-25] MEDS ORDERED: Zolpidem Tartrate 5 MG TAB PO PRN (15:48)
[2023-07-25] MEDS: cefTRIAXone\\ROCEPHIN 2 GM in Sodium Chloride 0.9% 100 ML IVPB SCH (20:46)
[2023-07-25] MEDS: Melatonin 3 MG TAB PO PRN (20:47)
[2023-07-26] MEDS: Albuterol 200 PUFF (6.7GM INHALER) INH SCH ×4 (02:39→14:02)
[2023-07-26] MEDS: Levothyroxine Sodium 125 MCG TAB PO SCH (05:31)
[2023-07-26] MEDS: Zinc Sulfate 220 MG CAP PO SCH (08:01)
[2023-07-26] MEDS: Digoxin 0.125 MG TAB PO SCH (08:01)
[2023-07-26] MEDS: Cholecalciferol 1,000 UNITS (25 MCG) TAB PO SCH (08:01)
[2023-07-26] MEDS: Ascorbic Acid 500 mg Chewable Tablet PO SCH (08:01)
[2023-07-26] MEDS: Famotidine 20 MG TAB PO SCH (08:01)
[2023-07-26] MEDS: Dexamethasone 10 MG/ML VIAL SLOW IVP SCH (08:02)
[2023-07-26] MEDS: Apixaban 5 MG TAB PO SCH (08:02)
[2023-07-26] MEDS: Carbidopa/Levodopa 25-100 mg Tablet PO SCH ×2 (08:03→12:07)
[2023-07-26 11:22] VITALS: BP 123/82; TEMP 97.4
== END 2023-07-26 14:04 | disposition home health service (06) | DRG 177 ==
LOC: ERS 15:17 → ERHOLD 21:01 → 2NO 07-22 15:58
PROVIDERS: ADMIT Internal Medicine; ATTEND Internal Medicine
PROC: 0T9B70Z Drainage of Bladder with Drainage Device, Via Natural or Artificial Opening (ICD-10-PCS; principal; 2023-07-21)
DX: U07.1 COVID-19 (principal); J12.82 Pneumonia due to coronavirus disease 2019; J96.01 Acute respiratory failure with hypoxia; E87.1 Hypo-osmolality and hyponatremia; I95.9 Hypotension, unspecified; Z79.899 Other long term (current) drug therapy; Z79.01 Long term (current) use of anticoagulants; E03.9 Hypothyroidism, unspecified; Z90.89 Acquired absence of other organs; Z90.710 Acquired absence of both cervix and uterus; Z87.891 Personal history of nicotine dependence; D75.1 Secondary polycythemia; G20.C Parkinsonism, unspecified; I48.0 Paroxysmal atrial fibrillation; F02.80 Dementia in other diseases classified elsewhere, unspecified severity, without behavioral disturbance, psychotic disturbance, mood disturbance, and anxiety
CPT/HCPCS: 36415; 51701; 71045; 71250; 80053; 80162; 81001; 83605; 83690; 83880; 84145; 84484; 85025; 87040; 87086; 93005; 93306; 96360; 96361; J0248; J0696; J1100; J3490; J7050; J7620

== ENCOUNTER 2023-09-27 10:39 | Outpatient (CLI) | payer MEDICARE ==
[2023-09-27] MEDS ORDERED: Magnevist 469MG/ML 20 ML VIAL ONE (12:55)
== END 2023-09-27 10:40 | disposition home or self-care (01) ==
LOC: MRI 10:39
PROVIDERS: ATTEND Psychiatry & Neurology Neurology
DX: G20.C Parkinsonism, unspecified (principal); G93.89 Other specified disorders of brain; G31.9 Degenerative disease of nervous system, unspecified; Z95.0 Presence of cardiac pacemaker
CPT/HCPCS: 70553; 71046; A9579

== ENCOUNTER 2023-11-08 09:49 | Day surgery (SDC) | payer MEDICARE ==
[2023-11-08] MEDS ORDERED: Sodium Bicarbonate 2.5 MEQ/5 ML SDV ONE (11:17)
[2023-11-08 13:59] LABS: CSF Source CSF; Clarity Clear (Clear); Tube # 4
[2023-11-08 14:12] LABS: CSF, Glucose 58 mg/dl (40-70); CSF, Protein 23.3 mg/dL (15-40)
[2023-11-08 15:44] LABS: Color Of CSF Supernatant COLORLESS (Colorless); Tube # 2; Unspun CSF Color COLORLESS (Colorless)
[2023-11-11 01:12] LABS: HSV 1 - DNA, CSF Negative (Negative); HSV 2 - DNA, CSF Negative (Negative)
== END 2023-11-08 14:00 | disposition home or self-care (01) ==
LOC: RAD 09:49
PROVIDERS: ATTEND Psychiatry & Neurology Neurology
PROC: 009U3ZX Drainage of Spinal Canal, Percutaneous Approach, Diagnostic (ICD-10-PCS; principal; 2023-11-08)
DX: G91.2 (Idiopathic) normal pressure hydrocephalus (principal)
CPT/HCPCS: 62270; 82945; 84157; 86592; 86612; 86635; 86698; 87205; 87529; 87899; 89051

== ENCOUNTER 2023-11-10 12:02 | Emergency (ER) | payer MEDICARE ==
[2023-11-10 13:30] LABS: #Basophils 0.04 10x3/uL (0.0-0.2); %Basophils 0.4 % (0.0-1.0); %Lymphocytes 10.4 % (21.0-51.0); %Monocytes 14.6 % (0.0-10.0); %Neutrophils 73.2 % (42.0-75.0); Hemoglobin 13.4 g/dL (12.0-16.0); Mean Corpuscular HGB CONC 33.5 g/dL (32.0-36.0); Mean Corpuscular Hemoglobin 32.4 pg (27.0-31.0); Mean Corpuscular Volume 96.6 fL (78.0-98.0); Mean Platelet Volume 11.5 fL (7.4-10.4); Platelet Count 285 10x3/uL (130-400); Red Blood Cell (RBC) Count 4.14 mill/uL (4.20-5.40)
[2023-11-10 13:54] LABS: ALT (SGPT) Less than 5 U/L (8-55); AST (SGOT) 11 U/L (5-34); Albumin 3.3 g/dL (3.4-4.8); Alkaline Phosphatase 54 U/L (40-110); Anion Gap 13 mmol/L (10-20); BUN (Urea Nitrogen) 13 mg/dL (9.8-20.1); Bilirubin, Total 0.8 mg/dL (0.2-1.2); Calc. Creatinine Clearance 0 mL/min (70-130); Calcium 9.5 mg/dL (7.8-10.44); Carbon Dioxide 23 mmol/L (23-31); Chloride 105 mmol/L (98-107); Estimated GFR 86; Globulin 3.7 g/dL (2.4-3.5); Glucose 105 mg/dL (83-110); Magnesium 2.1 mg/dL (1.6-2.6); Potassium 4.3 mmol/L (3.5-5.1); Sodium 137 mmol/L (136-145)
[2023-11-10 15:24] LABS: Bilirubin Negative (Negative); Blood, Urine Small (Negative); Glucose, Urine (Dipstick) Negative (Negative); Ketone, Urine Trace mg/dL (Negative); Leukocyte Negative (Negative); Nitrite Negative (Negative); Protein, Urine (Dipstick) Negative (Neg-Trace); Specific Gravity, Urine 1.015 (1.005-1.030)
[2023-11-10 15:25] LABS: Clarity Hazy (Clear)
[2023-11-10 15:29] LABS: Bacteria/HPF None Seen HPF (None Seen); CAUTI Indications for Culture Alt mental st,lethar; RBC/HPF 0-3 HPF (0-3); Squamous Epithelial 0-3 HPF (0-3); WBC/HPF 0-3 HPF (0-3)
[2023-11-10 15:31] LABS: Urine Culture Reflex No No
== END 2023-11-10 16:35 | disposition home or self-care (01) ==
LOC: ERS 12:02
DX: R53.1 Weakness (principal); I48.91 Unspecified atrial fibrillation; Z87.891 Personal history of nicotine dependence
CPT/HCPCS: 36415; 70450; 71045; 80053; 81001; 83605; 83735; 85025; 93005

== ENCOUNTER 2024-01-02 07:57 | Outpatient (CLI) | payer MEDICARE | END 2024-01-02 07:58 | disposition home or self-care (01) | LOC: CT 07:57 | PROVIDERS: ATTEND Psychiatry & Neurology Neurology | DX: G20.C Parkinsonism, unspecified (principal) | CPT/HCPCS: 78803; A9584 ×2 ==

== ENCOUNTER 2024-01-25 08:02 | Outpatient (CLI) | payer MEDICARE | END 2024-01-25 08:03 | disposition home or self-care (01) | LOC: MRI 08:02 | PROVIDERS: ATTEND Neurological Surgery | DX: M47.12 Other spondylosis with myelopathy, cervical region (principal); M50.022 Cervical disc disorder at C5-C6 level with myelopathy; M48.02 Spinal stenosis, cervical region; M25.78 Osteophyte, vertebrae | CPT/HCPCS: 71046; 72141 ==

== ENCOUNTER 2024-01-25 12:57 | Outpatient (CLI) | payer MEDICARE ==
[2024-01-25 14:51] LABS: Hematocrit 44.4 % (34.9-44.5); Hemoglobin 14.8 g/dL (12.0-15.5); Mean Corpuscular HGB CONC 33.3 g/dL (32.0-36.0); Mean Corpuscular Hemoglobin 32.5 pg (27.0-33.0); Mean Corpuscular Volume 97.6 fL (81.6-98.3); Mean Platelet Volume 13.5 fL (7.4-10.4); Platelet Count 187 10x3/uL (150-450); RBC Distribution Width 17.1 % (11.5-14.5); Red Blood Cell (RBC) Count 4.55 10x6/uL (3.90-5.03); White Blood Cell (WBC) Count 5.6 10x3/uL (3.5-10.5)
[2024-01-25 15:11] LABS: INR-International Normal Ratio 1.1; PTT 28.9 sec (22.0-33.0)
[2024-01-25 15:25] LABS: Anion Gap 15 mmol/L (10-20); BUN (Urea Nitrogen) 17 mg/dL (9.8-20.1); Calc. Creatinine Clearance 0 mL/min (70-130); Calcium 9.5 mg/dL (7.8-10.44); Carbon Dioxide 24 mmol/L (23-31); Chloride 105 mmol/L (98-107); Estimated GFR 84; Glucose 92 mg/dL (83-110); Potassium 4.7 mmol/L (3.5-5.1); Sodium 139 mmol/L (136-145)
== END 2024-01-25 12:58 | disposition home or self-care (01) ==
LOC: LABBT 12:57
PROVIDERS: ATTEND Neurological Surgery
DX: Z01.818 Encounter for other preprocedural examination (principal); G91.2 (Idiopathic) normal pressure hydrocephalus
CPT/HCPCS: 80048; 85027; 85610; 85730; 93005; 93010

== ENCOUNTER 2024-02-15 14:23 | Observation (INO) | payer MEDICARE ==
[2024-02-15 16:24] LABS: Hematocrit 44.6 % (36.0-47.0); Hemoglobin 14.9 g/dL (12.0-16.0); Mean Corpuscular HGB CONC 33.4 g/dL (32.0-36.0); Mean Corpuscular Volume 95.9 fL (78.0-98.0); Platelet Count 236 10x3/uL (130-400); RBC Distribution Width 16.9 % (11.5-14.5); Red Blood Cell (RBC) Count 4.65 mill/uL (4.20-5.40)
[2024-02-15 16:33] LABS: ALT (SGPT) 7 U/L (8-55); AST (SGOT) 7 U/L (5-34); Albumin 3.5 g/dL (3.4-4.8); Alkaline Phosphatase 64 U/L (40-110); Anion Gap 12 mmol/L (10-20); BUN (Urea Nitrogen) 16 mg/dL (9.8-20.1); Bilirubin, Total 0.8 mg/dL (0.2-1.2); Calc. Creatinine Clearance 0 mL/min (70-130); Calcium 9.3 mg/dL (7.8-10.44); Carbon Dioxide 27 mmol/L (23-31); Chloride 103 mmol/L (98-107); Estimated GFR 85; Globulin 3.1 g/dL (2.4-3.5); Glucose 95 mg/dL (83-110); Potassium 4.7 mmol/L (3.5-5.1); Protein, Total 6.6 g/dL (5.8-8.1); Sodium 137 mmol/L (136-145)
[2024-02-15 16:36] LABS: Troponin I 0.021 ng/mL (< 0.028)
[2024-02-15 16:51] LABS: Band 4 % (5-11); Burr Cells SLIGHT = 2-5 cells HPF (0-1); Large Platelets 9.7 % (0-5); Lymphocytes 8 % (21-51); Monocytes 7 % (0-10); Neutrophil 78 % (42-75); Platelet Adequacy Comment Platelets Normal; Polychromasia SLIGHT = 2-3 cells HPF (0-2); Reactive Lymphocytes 3 % (0-10)
[2024-02-15 17:07] LABS: Influenza A by NAA Not Detected (NotDetected); Influenza B by NAA Not Detected (NotDetected); SARS-CoV-2 NAA Rapid Test Not Detected (NotDetected)
[2024-02-15 19:07] LABS: Bacteria/HPF None Seen HPF (None Seen); Bilirubin Negative (Negative); Blood, Urine Trace (Negative); CAUTI Indications for Culture Alt mental st,lethar; Clarity Clear (Clear); Glucose, Urine (Dipstick) Normal (Negative); Ketone, Urine Trace mg/dL (Negative); Leukocyte Negative Leu/uL (Negative); Nitrite Negative (Negative); Protein, Urine (Dipstick) Negative (Neg-Trace); RBC/HPF 0-3 HPF (0-3); Squamous Epithelial 0-3 HPF (0-3); Urobilinogen 3 mg/dL (Less than 2)
[2024-02-15 19:09] LABS: Urine Culture Reflex No No
[2024-02-15] MEDS ORDERED: Acetaminophen 500 MG TAB ONE (20:13)
[2024-02-15] MEDS ORDERED: Acetaminophen 650 MG Suppository PR PRN (20:37)
[2024-02-15] MEDS ORDERED: Acetaminophen 325 MG TAB PO PRN (20:37)
[2024-02-15] MEDS: Famotidine 20 MG TAB PO SCH (22:27)
[2024-02-15 22:40] VITALS: BMI 20.9
[2024-02-16] MEDS: Levothyroxine 150 MCG TAB PO SCH (05:29)
[2024-02-16 05:45] LABS: #Basophils 0.07 10x3/uL (0.0-0.2); %Basophils 1.1 % (0.0-1.0); %Eosinophils 3.9 % (0.0-10.0); %Lymphocytes 17.6 % (21.0-51.0); %Monocytes 13.6 % (0.0-10.0); %Neutrophils 63.3 % (42.0-75.0); Hematocrit 44.4 % (36.0-47.0); Hemoglobin 14.7 g/dL (12.0-16.0); Mean Corpuscular HGB CONC 33.1 g/dL (32.0-36.0); Mean Corpuscular Hemoglobin 30.7 pg (27.0-31.0); Mean Corpuscular Volume 92.7 fL (78.0-98.0); Mean Platelet Volume 12.3 fL (7.4-10.4); Platelet Count 191 10x3/uL (130-400); RBC Distribution Width 16.8 % (11.5-14.5); Red Blood Cell (RBC) Count 4.79 mill/uL (4.20-5.40)
[2024-02-16 06:07] LABS: Anion Gap 13 mmol/L (10-20); BUN (Urea Nitrogen) 14 mg/dL (9.8-20.1); Calc. Creatinine Clearance 69 mL/min (70-130); Calcium 9.1 mg/dL (7.8-10.44); Carbon Dioxide 22 mmol/L (23-31); Chloride 105 mmol/L (98-107); Estimated GFR 86; Glucose 75 mg/dL (83-110); Magnesium 2.1 mg/dL (1.6-2.6); Potassium 4.1 mmol/L (3.5-5.1); Sodium 136 mmol/L (136-145)
[2024-02-16] MEDS: Carbidopa/Levodopa 25-100 mg Tablet PO SCH ×3 (09:26→17:12)
[2024-02-16] MEDS: Amiodarone 200 MG TAB PO SCH (09:26)
[2024-02-16] MEDS: Acetaminophen 325 MG TAB PO PRN (10:55)
[2024-02-16] MEDS: Ondansetron PF 4 MG/2 ML Vial IVP PRN (10:55)
[2024-02-16] MEDS ORDERED: traMADol HCl 50 MG TAB PO PRN (14:57)
[2024-02-16] MEDS ORDERED: Carbidopa/Levodopa 25-100 mg Tablet PO SCH (20:00)
[2024-02-16] MEDS: Potassium Chloride 10 MEQ TAB PO SCH (20:07)
[2024-02-16] MEDS: Sertraline 25 MG TAB PO SCH (20:07)
[2024-02-16] MEDS: Folic Acid 1 MG TAB PO SCH (20:07)
[2024-02-16] MEDS: Digoxin 0.125 MG TAB PO SCH (20:07)
[2024-02-17] MEDS: Carbidopa/Levodopa 25-100 mg Tablet PO SCH ×2 (08:16→21:03)
[2024-02-18] MEDS ORDERED: Melatonin 3 MG TAB PO PRN (00:04)
[2024-02-18 11:34] VITALS: BP 102/65; TEMP 97.7
[2024-02-18] MEDS: Carbidopa/Levodopa 25-100 mg Tablet PO SCH (14:56)
[2024-02-19] MEDS ORDERED: Carbidopa/Levodopa 25-100 mg Tablet PO SCH (13:00)
== END 2024-02-18 19:23 | disposition home or self-care (01) ==
LOC: ERS 14:23 → T4-A 20:44
PROVIDERS: ADMIT Student in an Organized Health Care Education/Training Program; ATTEND Internal Medicine
DX: R41.82 Altered mental status, unspecified (principal); I48.0 Paroxysmal atrial fibrillation; I50.22 Chronic systolic (congestive) heart failure; E03.9 Hypothyroidism, unspecified; G91.2 (Idiopathic) normal pressure hydrocephalus; G20.A1 Parkinson's disease without dyskinesia, without mention of fluctuations; G93.41 Metabolic encephalopathy; Z90.710 Acquired absence of both cervix and uterus; Z90.12 Acquired absence of left breast and nipple; Z98.890 Other specified postprocedural states; Z79.01 Long term (current) use of anticoagulants; Z79.890 Hormone replacement therapy; Z79.899 Other long term (current) drug therapy; Z98.2 Presence of cerebrospinal fluid drainage device
CPT/HCPCS: 0240U; 70450; 70551; 75809; 80048; 80053; 81001; 83735; 84443; 84484; 85025 ×2; 93005; 97530 ×3; 97535; 97542 ×2; 99285; J2405; 36415; 96374; G0378